=== PATIENT | male | born 1965 | race Caucasian/White ===

== ENCOUNTER 2017-12-11 13:38 | Inpatient (IN) | payer BC ==
[2017-12-11 20:54] LABS: Glucose,Whole Blood 134 mg/dL (75-99)
[2017-12-11] MEDS: INSULIN ASPART 100 UNIT/ML 1 ML 10 ML VIAL SQ SCH (21:57)
[2017-12-11] MEDS ORDERED: cloNIDine HCL 0.2 MG TAB PO SCH (22:00)
[2017-12-11] MEDS: cloNIDine HCL 0.2 MG TAB PO SCH (23:53)
[2017-12-11] MEDS: methylPREDNISolone SOD SUCCI 125 MG/2 ML VIAL IV SCH (23:53)
[2017-12-12] MEDS ORDERED: ALPRAZolam 0.25 MG TAB PO PRN (00:52)
[2017-12-12] MEDS ORDERED: TEMAZEPAM 15 MG CAP PO PRN (00:52)
--- NOTE | 2017-12-12 01:17 | XR ---
EXAMINATION TYPE: XR chest 1V portable DATE OF EXAM: 12/12/2017 COMPARISON: NONE HISTORY: Short of breath TECHNIQUE: Single frontal view of the chest is obtained. FINDINGS: Heart is enlarged. There is some infiltrate at the lung bases and more on the left side. T here is coarsening of interstitial markings. The pulmonary vascularity is difficult to evaluate becau se of the lung disease. There are chest leads. I see no pleural effusion. IMPRESSION: Cardiomegaly and bilateral lower lobe pulmonary infiltrates probably related to pneumoni a. Mild heart failure is possible. Possible pulmonary interstitial fibrosis.
[2017-12-12 06:03] LABS: Glucose,Whole Blood 125 mg/dL (75-99)
[2017-12-12 06:57] LABS: Albumin 4.1 g/dL (3.5-5.0); Calcium 9.9 mg/dL (8.4-10.2); Potassium 4.8 mmol/L (3.5-5.1); Total Bilirubin 0.9 mg/dL (0.2-1.3); Total Protein 7.5 g/dL (6.3-8.2)
[2017-12-12] MEDS: methylPREDNISolone SOD SUCCI 125 MG/2 ML VIAL IV SCH ×4 (06:57→23:20)
[2017-12-12] MEDS: INSULIN ASPART 100 UNIT/ML 1 ML 10 ML VIAL SQ SCH ×4 (06:57→20:37)
[2017-12-12] MEDS: PANTOPRAZOLE 40 MG TABLET PO SCH (06:58)
--- NOTE | 2017-12-12 08:00 | HP ---
HISTORY AND PHYSICAL CHIEF COMPLAINT: Shortness of breath. HISTORY OF PRESENT ILLNESS: This 52-year-old gentleman with a past history of no medical history except appendectomy, hernia repair is not following with any primary physician. The patient presented to [facility] with complaint of shortness of breath and subsequently transferred to Cardiology for further evaluation and treatment. The patient is feeling better after Lasix. Otherwise there is no history of fever or rigors. There is no history of headache, loss of consciousness. The patient is being evaluated for CHF at this time. PAST MEDICAL HISTORY: History of appendectomy, hernia repair. MEDICATIONS: None. ALLERGIES: None. FAMILY HISTORY: Atrial fibrillation, CABG in the family. SOCIAL HISTORY: History of smoking. No history of alcohol intake. REVIEW OF SYSTEMS: ENT: No diminished hearing, vision. CARDIOVASCULAR: As mentioned earlier. RESPIRATORY: As mentioned earlier. GI: No nausea. : No dysuria. NERVOUS SYSTEM: No numbness, weakness. ALLERGY/IMMUNOLOGY: No history of asthma. MUSCULOSKELETAL: As mentioned earlier. HEMATOLOGY/ONCOLOGY: No history of anemia. ENDOCRINE: No history of diabetes or hypothyroidism. CONSTITUTIONAL: As mentioned earlier. DERMATOLOGY: Negative. RHEUMATOLOGY: Negative. PSYCHIATRY: As mentioned earlier. PHYSICAL EXAM: Patient is alert, oriented x3. Pulse is 80, blood pressure 140/94, respirations 16, temp 97.7, pulse ox 96% on room air. HEENT: Conjunctivae normal. Oral mucosa moist. NECK: No jugular venous distention. No carotid bruit. No lymph node enlargement. CARDIOVASCULAR: S1, S2. No S3, no S4. RESPIRATORY: Breath sounds diminished in the bases. A few scattered rhonchi. No crackles. ABDOMEN: Soft, nontender. No mass palpable. LEGS: No edema, no swelling. NERVOUS SYSTEM: Higher functions as mentioned earlier, moves all 4 limbs, no focal motor deficits. LYMPHATICS: No lymphadenopathy in the neck, axillae, groin. SKIN: No ulcer, rash, bleeding. LABS: At this time shows glucose 130. ASSESSMENT: 1. Shortness of breath for evaluation, rule out congestive heart failure. 2. History of nicotine dependence. 3. Appendectomy. 4. History of hernia repair. 5. Family history of coronary artery disease. 6. Hypertension. RECOMMENDATIONS AND DISCUSSION: This 52-year-old gentleman who presented with multiple complex medical issues, will monitor the patient closely. Continue the current management and symptomatic treatment. Otherwise at this time I recommend smoking cessation. Monitor blood pressure closely. Otherwise I would also continue with bronchodilators, rule out the possibility of COPD and follow closely with Cardiology and Pulmonology. Further recommendations to follow. MMODL / IJN: [id number] /
[2017-12-12] MEDS: FUROSEMIDE 10 MG/ML 4 ML VIAL IV SCH ×2 (08:35→12:47)
[2017-12-12] MEDS: amLODIPine 5 MG TAB PO SCH (08:35)
[2017-12-12] MEDS: cloNIDine HCL 0.2 MG TAB PO SCH (08:35)
[2017-12-12] MEDS: HEPARIN SODIUM,PORCINE 5,000 UNIT/ML 1 ML VIAL SQ SCH ×2 (08:36→20:39)
[2017-12-12] MEDS: NICOTINE 14MG/24HR PATCH TRANSDERM SCH (08:36)
[2017-12-12] MEDS: BUDESONIDE 1 MG/2 ML NEBU INHALATION SCH ×2 (08:43→20:32)
[2017-12-12] MEDS: IPRATROPIUM-ALBUTEROL 3 ML NEB INHALATION PRN ×2 (08:43→20:32)
[2017-12-12 11:15] LABS: Hemoglobin A1C 5.8 % (4.0-6.0)
[2017-12-12 11:59] LABS: Glucose,Whole Blood 162 mg/dL (75-99)
[2017-12-12 12:30] VITALS: BMI 32.8
--- NOTE | 2017-12-12 12:39 | XR ---
EXAMINATION TYPE: XR chest 2V DATE OF EXAM: 12/12/2017 HISTORY: CHF. REFERENCE: Previous study dated 12/12/2017. FINDINGS: The lungs are overinflated. The heart is mildly enlarged. There is some focal consolidation in the left lower lobe. There is atelectasis or scarring in the right lung base. Pleural spaces appe ar clear. IMPRESSION: 1. COPD. 2. CARDIOMEGALY. 3. LEFT BASILAR AIRSPACE DISEASE.
[2017-12-12] MEDS: THIAMINE 100 MG TAB PO SCH (12:51)
[2017-12-12 13:34] LABS: Cholesterol 152 mg/dL (<200); HDL Cholesterol 36 mg/dL (40-60); LDL Cholesterol,Calculated 95 mg/dL (0-99); Triglycerides 105 mg/dL (<150)
--- NOTE | 2017-12-12 14:33 | PN ---
PROGRESS NOTE Mr. Cazares is a 52-year-old male with no prior documented coronary disease who has not seen a physician in a longtime who presented to the hospital with symptoms of progressive dyspnea and he was noted to be in congestive heart failure with uncontrolled hypertension. He had an echocardiogram that revealed a severe cardiomyopathy. The patient is feeling much better today. His breathing is stable. He denies any chest pain. He denies any dizziness or palpitation. He denies any nausea. On his echocardiogram, it was felt ejection fraction is 20-25%. The patient denies any knowledge of any abnormalities, but as noted has not seen a physician in the recent past. He continues to be at this time on amlodipine 5 mg daily, clonidine 0.2 mg q.8 hours. PHYSICAL EXAMINATION: Blood pressure 126/70 with a heart rate in the 70s. LUNGS: Clear. HEART: Regular rate and rhythm. S1, S2. No S3. No rub appreciated. ABDOMEN: Soft, nontender. EXTREMITIES: No edema. LAB DATA: BUN and creatinine of 41 and 1.6, which is similar to what he had at [facility]. IMPRESSION: 1. Severe cardiomyopathy of unclear etiology. 2. Hypertension. 3. Chronic tobacco use. 4. Renal failure of unknown duration. RECOMMENDATION: Will cut down the dose of his clonidine. I will add beta ken to his regimen. I will add aspirin once a day. We will follow his renal function. The patient would require coronary angiography to assess the status and depending on his renal function, further recommendation will be made. MMODL / IJN: [id number] /
--- NOTE | 2017-12-12 15:35 | P.CNPUL ---
History of Present Illness Consult date: 12/12/17 Reason for consult: dyspnea History of present illness: This is a 52-year-old male patient got transferred from [facility] for further evaluation and specifically the patient wanted some further cardiac evaluation including cardiac catheterization regarding possible coronary artery disease. The patient presented there with increased shortness of breath. The patient was having progressive dyspnea and orthopnea and increasing lower extremity edema. He is further having some increased cough and congestion. Chest x-ray was consistent with failure. The patient's troponins were negative. Echocardiogram shows impaired LV function with an ejection of 2025%. Based on that, the patient started on diuretics and he started improving. The plan was to proceed with a cardiac catheterization however the patient developed an acute kidney injury in the creatinine came up to 1.6. Currently the Lasix hold. Meanwhile the patient is improved significantly. The patient is receiving bronchodilators. The patient has a proBNP level of 2500. Sodium level is also elevated at 146. Chest x-ray was repeated here and it showed cardiomegaly and left basilar airspace disease and some COPD. The patient is a chronic smoker. This patient has smoked more than 35-40 pack years. No previous history of DVT or pulmonary embolism. No other previous history of asthma or cardiac disease. Review of Systems Constitutional: Reports as per HPI Eyes: denies blurred vision, denies bulging eye, denies decreased vision Ears: deny: decreased hearing, ear discharge, earache Ears, nose, mouth and throat: Denies headache, Denies sore throat Cardiovascular: Reports dyspnea on exertion, Reports edema, Reports shortness of breath Respiratory: Reports cough, Reports dyspnea Gastrointestinal: Denies abdominal pain, Denies diarrhea, Denies nausea, Denies vomiting Genitourinary: Reports as per HPI Musculoskeletal: Denies myalgias Musculoskeletal: absent: ankle pain, ankle stiffness, ankle swelling Integumentary: Denies pruritus, Denies rash Neurological: Denies numbness, Denies weakness Psychiatric: Denies anxiety, Denies depression Endocrine: Denies fatigue, Denies weight change Hematologic/Lymphatic: Reports as per HPI Past Medical History Additional Past Medical History / Comment(s): Congestion heart failure with impaired ejection fraction of 25%, COPD History of Any Multi-Drug Resistant Organisms: None Reported Past Surgical History: Appendectomy Additional Past Surgical History / Comment(s): hernia repair Past Anesthesia/Blood Transfusion Reactions: No Reported Reaction Past Psychological History: No Psychological Hx Reported Smoking Status: Current every day smoker (More than [id number] smoking history , no alcoholism, so substance abuse and 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) Past Alcohol Use History: None Reported Past Drug Use History: None Reported - Past Family History Mother Family Medical History: AFIB Father Family Medical History: Coronary Artery Disease (CAD) Additional Family Medical History / Comment(s): CABG Medications and Allergies Home Medications Medication Instructions Recorded Confirmed Type No Known Home Medications [No 12/11/17 12/11/17 History Known Home Medications] Allergies Allergy/AdvReac Type Severity Reaction Status Date / Time No Known Allergies Allergy Verified 12/11/17 20:44 Physical Exam Vitals: Vital Signs Temp Pulse Pulse Resp BP Pulse Ox 12/12/17 11:14 96.8 F L 70 18 126/77 96 12/12/17 09:05 76 12/12/17 08:44 72 12/12/17 08:00 96.9 F L 76 18 149/88 94 L 12/12/17 04:00 97.3 F L 72 16 112/75 94 L 12/12/17 00:00 97.0 F L 70 16 139/87 95 12/11/17 20:30 97.7 F 80 16 148/94 96 12/11/17 19:40 97.7 F 80 16 148/94 96 Intake and Output 12/12/17 12/12/17 12/12/17 06:59 14:59 22:59 Intake Total 240 Output Total 400 500 Balance -400 -260 Intake: Oral 240 Output: Urine 400 500 Other: Voiding Method Urinal Weight 116 kg 116 kg The patient appeared well nourished and normally developed. Vital signs as documented. Head exam is unremarkable. No scleral icterus or corneal arcus noted. Neck is without jugular venous distension, thyromegaly, or carotid bruits. Carotid upstrokes are brisk bilaterally. Lungs are diminished breath sound bilaterally along with some few scattered external wheezes heard throughout the lung sargent.. Cardiac exam reveals the PMI to be normally sized and situated. Rhythm is regular. First and second heart sounds normal. No murmurs, rubs or gallops. Abdominal exam reveals normal bowel sounds, no masses , no organomegaly and no aortic enlargement. Extremities are nonedematous and both femoral and pedal pulses are normal.Examination of the skin revealed no evidence of significant rashes, suspicious appearing nevi or other concerning lesions. Neurologically the patient is awake and alert and there is no focal neurological deficits. Results - Laboratory Findings CBC and BMP: 12/12/17 06:22 Abnormal lab findings: Abnormal Labs 12/11/17 12/12/17 12/12/17 20:53 06:01 06:22 Sodium 146 H BUN 41 H Creatinine 1.60 H Glucose 133 H POC Glucose (mg/dL) 134 H 125 H HDL Cholesterol 12/12/17 12/12/17 06:22 11:27 Sodium BUN Creatinine Glucose POC Glucose (mg/dL) 162 H HDL Cholesterol 36 L - Diagnostic Findings Chest x-ray: image reviewed Assessment and Plan Plan: Assessment 1 acute shortness of breath, related to a combination of COPD/CHF exacerbation, improving 2 COPD 3 congestion heart failure with an ejection fraction of 25% 4 increased lower extremity edema secondary to CHF, improved 5 acute kidney injury secondary to diuresis and the patient is currently off diuretics 6 hypertension 7 smoker Plan Hold diuretics. Monitor renal function. Cardiac catheterization once the patient's renal function stabilizes. Continue the DuoNeb nebulized treatments around the clock. Continue IV 7 Medrol for another 24 hours and start the patient prednisone burst taper as of tomorrow. Chest x-rays consistent with COPD and outpatient employee relations assistant function tests will be done to assess the presence and the severity of his underlying COPD. We'll continue to follow.
[2017-12-12] MEDS: ATORVASTATIN 40 MG TAB PO SCH (17:04)
[2017-12-12] MEDS: cloNIDine HCL 0.1 MG TAB PO SCH ×2 (17:04→23:19)
[2017-12-12] MEDS: ASPIRIN 81 MG PO SCH (17:04)
--- NOTE | 2017-12-12 17:20 | ECHOF ---
Referral Reason:chf MEASUREMENTS -------- HEIGHT: 182.9 cm WEIGHT: 118.8 kg BP: RVIDd: 4.2 cm (< 3.3) IVSd: 1.5 cm (0.6 - 1.1) LVIDd: 5.7 cm (3.9 - 5.3) LVPWd: 1.6 cm (0.6 - 1.1) IVSs: 1.7 cm LVIDs: 4.1 cm LVPWs: 1.8 cm LA Diam: 4.6 cm (2.7 - 3.8) Ao Diam: 3.2 cm (2.0 - 3.7) AV Cusp: 1.6 cm (1.5 - 2.6) LA Diam: 4.9 cm (2.7 - 3.8) MV EXCURSION: 16.139 mm (> 18.000) MV EF SLOPE: 50 mm/s (70 - 150) EPSS: 2.0 cm MV E Rocael: 0.93 m/s MV DecT: 147 ms MV A Rocael: 0.26 m/s MV E/A Ratio: 3.53 RAP: 5.00 mmHg RVSP: 43.59 mmHg FINDINGS -------- Sinus rhythm. This was a techncally difficult study with suboptimal views, , Lumason utilized for enhancement of im ages. The left ventricular size is normal. There is moderate concentric left ventricular hypertrophy. T here is severe global hypokinesis of LV . Overall left ventricular systolic function is moderate-se verely impaired with, an EF between 30 - 35 %. The right ventricle is normal in size. The left atrium is mildly dilated. The right atrial size is normal. 5.0mg OF Lumason UTLIZED: 2 OR MORE WALL SEGMENTS NOT VISUALIZED. The aortic valve is trileaflet, and appears structurally normal. No aortic stenosis or regurgitation. The mitral valve is normal. Mild mitral regurgitation is present. Mild tricuspid regurgitation present. There is mild pulmonary hypertension. The right ventricular systolic pressure, as measured by Doppler, is 43.59mmHg. There is no pulmonic regurgitation present. The aortic root size is normal. There is a trivial pericardial effusion present. CONCLUSIONS -------- 1. This was a techncally difficult study with suboptimal views, , Lumason utilized for enhancement of images. 2. The left ventricular size is normal. 3. There is moderate concentric left ventricular hypertrophy. 4. There is severe global hypokinesis of LV . 5. Overall left ventricular systolic function is moderate-severely impaired with, an EF between 30 - 35 %. 6. The left atrium is mildly dilated. 7. 5.0mg OF Lumason UTLIZED: 2 OR MORE WALL SEGMENTS NOT VISUALIZED. 8. The aortic valve is trileaflet, and appears structurally normal. No aortic stenosis or regurgitati on. 9. Mild mitral regurgitation is present. 10. Mild tricuspid regurgitation present. 11. There is mild pulmonary hypertension. 12. There is no pulmonic regurgitation present. 13. The aortic root size is normal. 14. There is a trivial pericardial effusion present. PUBLIC HEALTH ASSISTANT: Sailaja Crawford RDCS
[2017-12-12 17:21] LABS: Glucose,Whole Blood 104 mg/dL (75-99)
[2017-12-12] MEDS: CARVEDILOL 6.25 MG TAB PO SCH (18:10)
--- NOTE | 2017-12-12 18:45 | PN ---
PROGRESS NOTE DATE OF SERVICE: 12/12/2017 This 52-year-old gentleman who was admitted with shortness of breath, possibly had CHF acute exacerbation with acute on chronic systolic dysfunction and possibly cardiomyopathy of undetermined etiology. Ejection fraction found to be around 20 to 25%. The patient is also evaluated by Pulmonology to rule out the possibility of chronic obstructive pulmonary disease. Otherwise the patient also had a renal failure, possibly chronic kidney disease and I would also recommend nephrology evaluation also prior to possible cardiac cath. Otherwise the patient is being closely monitored at this time. PAST MEDICAL HISTORY: Reviewed. REVIEW OF SYSTEMS: CARDIOVASCULAR: No angina. RESPIRATORY: As mentioned earlier. GI: As Mentioned. : No dysuria or retention. NERVOUS SYSTEM: As mentioned earlier. CURRENT MEDICATIONS: 1. DuoNeb q.i.d. and p.r.n. 2. Xanax 0.5 t.i.d. 3. Norvasc 5 mg b.i.d. 4. Aspirin 81 mg. 5. Lipitor 40 mg. 6. Pulmicort b.i.d. 7. Coreg 6.25 mg b.i.d. 8. Heparin. 9. Solu-Medrol 60 IV q.6h. 10.Habitrol 14. 11.Restoril. 12.Thiamine 100 mg p.o. daily. PHYSICAL EXAM: Patient is alert, oriented x3. Pulse 70, blood pressure 126/77, respiration 18, temperature 96.8, pulse ox 98% on room air. HEENT: Conjunctivae normal. NECK: No jugular venous distention. CARDIOVASCULAR: S1, S2 muffled. RESPIRATORY: Breath sounds diminished in the bases. Scattered rhonchi. No crackles. ABDOMEN: Soft, nontender. No mass palpable. No hepatosplenomegaly. LEGS: No edema, no swelling. NERVOUS SYSTEM: Higher functions as mentioned earlier, moves all 4 limbs, no focal motor deficit. LYMPHATICS: No lymphadenopathy in the neck, axillae, groin. SKIN: No ulcer, rashes, bleeding. LABS: The sodium is 140, creatinine is 1.6. ASSESSMENT: 1. Shortness of breath possible congestive heart failure acute exacerbation with acute on chronic systolic dysfunction, ejection fraction 25-30%. 2. Possible cardiomyopathy of undetermined etiology. 3. Rule out chronic obstructive pulmonary disease. 4. History of nicotine dependence. 5. Appendectomy. 6. History of hernia repair. 7. Family history of coronary artery disease. 8. Hypertension. 9. Mild hyponatremia. 10.Increased random blood sugar. RECOMMENDATIONS AND DISCUSSION: I recommend to continue current management, continue monitoring and symptomatic treatment. Continue diuretics. Continue with bronchodilators. Steroids initiated. Monitor blood sugars closely. Closely follow with Cardiology and Pulmonology. I would also recommend nephrology evaluation, possible cardiac cath. Prognosis guarded. Discussed with the patient who understands. Further recommendations to follow. I also recommend the patient follow up with primary physician in the outpatient setting also. The patient understands and agrees. MMODL / IJN: [id number] /
[2017-12-12 20:32] LABS: Glucose,Whole Blood 128 mg/dL (75-99)
[2017-12-13 05:54] LABS: Glucose,Whole Blood 128 mg/dL (75-99)
[2017-12-13] MEDS: INSULIN ASPART 100 UNIT/ML 1 ML 10 ML VIAL SQ SCH ×4 (06:20→21:54)
[2017-12-13] MEDS: methylPREDNISolone SOD SUCCI 125 MG/2 ML VIAL IV SCH ×4 (06:32→23:52)
[2017-12-13] MEDS: CARVEDILOL 6.25 MG TAB PO SCH ×2 (06:34→17:25)
[2017-12-13] MEDS: PANTOPRAZOLE 40 MG TABLET PO SCH (06:34)
[2017-12-13 06:48] LABS: Basophils % (A) 0 %; Eosinophils % (A) 0 %; HCT 49.2 % (39.0-53.0); HGB 15.2 gm/dL (13.0-17.5); Hypochromasia Moderate; Lymphocytes # (A) 0.9 k/uL (1.0-4.8); Lymphocytes % (A) 6 %; MCH 24.2 pg (25.0-35.0); MCHC 30.9 g/dL (31.0-37.0); MCV 78.2 fL (80.0-100.0); Mean Platelet Volume 8.6; Monocytes # (A) 0.4 k/uL (0-1.0); Monocytes % (A) 3 %; Neutrophils # (A) 13.6 k/uL (1.3-7.7); Neutrophils % (A) 90 %; Platelet Count 257 k/uL (150-450); RBC 6.29 m/uL (4.30-5.90); RDW 15.3 % (11.5-15.5); WBC 15.1 k/uL (3.8-10.6)
[2017-12-13 07:31] LABS: Calcium 9.9 mg/dL (8.4-10.2); Potassium 4.7 mmol/L (3.5-5.1)
[2017-12-13] MEDS: IPRATROPIUM-ALBUTEROL 3 ML NEB INHALATION PRN ×2 (08:12→20:59)
[2017-12-13] MEDS: BUDESONIDE 1 MG/2 ML NEBU INHALATION SCH ×2 (08:12→20:59)
[2017-12-13] MEDS: NICOTINE 14MG/24HR PATCH TRANSDERM SCH (08:25)
[2017-12-13] MEDS: ATORVASTATIN 40 MG TAB PO SCH (08:25)
[2017-12-13] MEDS: HEPARIN SODIUM,PORCINE 5,000 UNIT/ML 1 ML VIAL SQ SCH ×2 (08:25→21:53)
[2017-12-13] MEDS: cloNIDine HCL 0.1 MG TAB PO SCH ×2 (08:25→21:53)
[2017-12-13] MEDS: ASPIRIN 81 MG PO SCH (08:25)
[2017-12-13] MEDS: amLODIPine 5 MG TAB PO SCH (08:25)
--- NOTE | 2017-12-13 08:44 | P.NPCON ---
History of Present Illness - Reason for Consult acute renal failure - History of Present Illness Reason for consultation: Acute kidney injury History of present illness: Patient is a 52-year-old male seen in renal consultation for acute kidney injury. Unclear as to what his baseline function is. Patient presented to [facility] with dyspnea. He was complaining of edema in his legs and received IV diuretics. Edema has resolved. He was subsequently transferred to [facility] for possible angiography. His creatinine was 1.6 on admission and is down to 1.34 today. He denies any active chest pain or shortness of breath. Denies use of NSAIDs. Denies prior history of kidney disease. States he hasn't seen a physician for several years. Echocardiogram revealed ejection fraction of 30-35%. Admits to good urine output. Hematuria or dysuria. Oral intake is good. His last dose of Lasix was on December 19. He admits to good urine output. Denies any hematuria or dysuria. Denies fever or chills. No active complaints at this time. Vital signs are stable. General: The patient appeared well nourished and normally developed. HEENT: Head exam is unremarkable. Neck is without jugular venous distension. LUNGS: Lungs are clear to auscultation and percussion. Breath sounds decreased. HEART: Rate and Rhythm are regular. First and second heart sounds normal. No murmurs, rubs or gallops. ABDOMEN: Abdominal exam reveals normal bowel sounds. Non-tender and non- distended. No evidence of peritonitis. EXTREMITITES: No clubbing, cyanosis, or edema. 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) Past Alcohol Use History: None Reported Past Drug Use History: None Reported - Past Family History Mother Family Medical History: AFIB Father Family Medical History: Coronary Artery Disease (CAD) Additional Family Medical History / Comment(s): CABG Medications and Allergies Home Medications Medication Instructions Recorded Confirmed Type No Known Home Medications [No 12/11/17 12/11/17 History Known Home Medications] Allergies Allergy/AdvReac Type Severity Reaction Status Date / Time No Known Allergies Allergy Verified 12/11/17 20:44 Physical Exam Vitals: Vital Signs Temp Pulse Pulse Resp BP Pulse Ox 12/13/17 08:28 70 12/13/17 08:14 64 12/13/17 03:40 97.0 F L 74 18 112/76 93 L 12/12/17 23:20 97.2 F L 70 18 129/87 94 L 12/12/17 20:47 80 12/12/17 20:33 83 12/12/17 19:50 96.9 F L 74 18 131/86 94 L 12/12/17 16:00 97.1 F L 73 18 135/90 96 12/12/17 11:14 96.8 F L 70 18 126/77 96 12/12/17 09:05 76 12/12/17 08:44 72 Intake and Output 12/12/17 12/13/17 12/13/17 22:59 06:59 14:59 Intake Total 480 Output Total 600 500 Balance -120 -500 Intake: Oral 480 Output: Urine 600 500 Other: Voiding Method Urinal Urinal # Voids 500 Weight 116.3 kg Results - Lab Results Most recent lab results Calcium 9.9 mg/dL (8.4-10.2) 12/13/17 06:14 12/13/17 06:14 12/13/17 06:14 Assessment and Plan Plan: Assessment: #1. Nonoliguric acute kidney injury mostly prerenal secondary to cardiorenal syndrome. Creatinine was 1.6 on admission and is 1.34 today. Unclear as to what his baseline renal function is. #2. Mild hypernatremia from free water losses from diuresis. #3. Metabolic acidosis secondary to acute kidney injury. #4. Systolic CHF with ejection fraction of 30%. Currently compensated. #5. Volume overload. Resolved. Plan: Continue to hold diuretics for now. Add oral sodium bicarbonate 650 mg twice daily. Low-salt diet. I discussed with him the risk of worsening renal failure with exposure to IV dye. Patient understands. He is willing to proceed with angiography. I would hold off on IV hydration due to his underlying cardiac status and recent fluid overload. Thank you for the consultation. I will continue to follow the patient with you during his hospital stay.
[2017-12-13] MEDS: SODIUM BICARBONATE TAB 650 MG TAB PO SCH ×2 (10:34→21:54)
--- NOTE | 2017-12-13 11:52 | PN ---
PROGRESS NOTE Mr. Cazares is a 52-year-old male who presented with symptoms of progressive dyspnea, was found to have severe cardiomyopathy and severe hypertension. He is feeling much better today. His breathing is stable. He denies any chest pain. He denies any dizziness or palpitation. He is ambulating, feeling stronger. He continues to be at this time on Catapres 0.1 mg 3 times a day, Lipitor 4 mg daily, aspirin once a day, amlodipine 5 mg daily, Coreg 6.5 mg twice a day. Methylprednisone and nicotine patch. PHYSICAL EXAMINATION: Blood pressure 135/80 with a heart rate in 70s. LUNGS: Clear. Heart regular rate and rhythm S1, S2. No S3. No rub. ABDOMEN: Soft, nontender. EXTREMITIES: No edema. LAB DATA: Lab data revealed a BUN and creatinine of 42 and 1.34, potassium 4.7, hemoglobin 15.2. IMPRESSION: 1. Severe cardiomyopathy of unclear etiology. 2. Hypertension. 3. Renal failure, improving. 4. Chronic tobacco use. RECOMMENDATION: I will stop the amlodipine and decrease the clonidine. I will add hydralazine and isosorbide mononitrate to his regimen. The patient will require coronary angiography. Depending on his renal function he may be a candidate to do that sometime in mid next week and I have discussed those findings with the patient and he is in full understanding and agreement. MMODL / IJN: [id number] /
[2017-12-13 11:59] LABS: Glucose,Whole Blood 122 mg/dL (75-99)
[2017-12-13] MEDS: hydrALAZINE HCL 25 MG TAB PO SCH ×2 (12:33→23:52)
[2017-12-13] MEDS: ISOSORBIDE MONONITRATE ER 30 MG TAB.ER.24H PO SCH (12:33)
[2017-12-13] MEDS: THIAMINE 100 MG TAB PO SCH (12:33)
[2017-12-13 12:38] LABS: Albumin 3.9 g/dL (3.5-5.0); Total Bilirubin 0.9 mg/dL (0.2-1.3); Total Protein 7.3 g/dL (6.3-8.2)
--- NOTE | 2017-12-13 12:40 | P.PN ---
Subjective Progress Note Date: 12/13/17 This is a 52-year-old male patient got transferred from [facility] for further evaluation and specifically the patient wanted some further cardiac evaluation including cardiac catheterization regarding possible coronary artery disease. The patient presented there with increased shortness of breath. The patient was having progressive dyspnea and orthopnea and increasing lower extremity edema. He is further having some increased cough and congestion. Chest x-ray was consistent with failure. The patient's troponins were negative. Echocardiogram shows impaired LV function with an ejection of 2025%. Based on that, the patient started on diuretics and he started improving. The plan was to proceed with a cardiac catheterization however the patient developed an acute kidney injury in the creatinine came up to 1.6. Currently the Lasix hold. Meanwhile the patient is improved significantly. The patient is receiving bronchodilators. The patient has a proBNP level of 2500. Sodium level is also elevated at 146. Chest x-ray was repeated here and it showed cardiomegaly and left basilar airspace disease and some COPD. The patient is a chronic smoker. This patient has smoked more than 35-40 pack years. No previous history of DVT or pulmonary embolism. No other previous history of asthma or cardiac disease. On 12/11/2017, the patient is doing well. His shortness of breath improved considerably. Noted the patient came into the hospital because of an acute COPD /CHF exacerbation. COPD exacerbation was treated with a combination of DuoNeb and IV Solu-Medrol. As for the CHF, the patient was found to have significant cardiomyopathy and as part of further workup the patient will need a cardiac catheterization. Nevertheless, the cath was placed on hold knowing that the patient developed some prerenal azotemia secondary to aggressive diuresis. The diuretics have to patient's volume status and he is less short of breath. Nevertheless, he has developed a acute kidney injury and the currently the Lasix is on hold. The renal function is improving. A cardiac catheter patient will be done once the renal function normalizes. We are avoiding nephrotoxic agents for now. His blood pressure is under well control. No other significant events over the past 24 hours. His emanating. He is utilizing a nicotine patch. Objective - Vital Signs Vital signs: Vital Signs Temp 97.2 F L 12/13/17 11:29 Pulse 77 12/13/17 11:29 Resp 18 12/13/17 11:29 BP 135/85 12/13/17 11:29 Pulse Ox 95 12/13/17 11:29 Intake & Output 12/12/17 12/13/17 12/13/17 18:59 06:59 18:59 Intake Total 1200 Output Total 1100 500 Balance 100 -500 Weight 116 kg 116.3 kg Intake: Oral 1200 Output: Urine 1100 500 Other: Voiding Method Urinal Urinal # Voids 500 - Exam The patient appeared well nourished and normally developed. Vital signs as documented. Head exam is unremarkable. No scleral icterus or corneal arcus noted. Neck is without jugular venous distension, thyromegaly, or carotid bruits. Carotid upstrokes are brisk bilaterally. Lungs are diminished breath sound bilaterally along with some few scattered external wheezes heard throughout the lung sargent.. Cardiac exam reveals the PMI to be normally sized and situated. Rhythm is regular. First and second heart sounds normal. No murmurs, rubs or gallops. Abdominal exam reveals normal bowel sounds, no masses , no organomegaly and no aortic enlargement. Extremities are nonedematous and both femoral and pedal pulses are normal.Examination of the skin revealed no evidence of significant rashes, suspicious appearing nevi or other concerning lesions. Neurologically the patient is awake and alert and there is no focal neurological deficits. - Labs CBC & Chem 7: 12/13/17 06:14 12/13/17 06:14 Labs: Abnormal Lab Results - Last 24 Hours (Table) 12/12/17 12/12/17 12/12/17 Range/Units 06:22 16:53 20:29 WBC (3.8-10.6) k/uL RBC (4.30-5.90) m/uL MCV (80.0-100.0) fL MCH (25.0-35.0) pg MCHC (31.0-37.0) g/dL Neutrophils # (1.3-7.7) k/uL Lymphocytes # (1.0-4.8) k/uL Carbon Dioxide (22-30) mmol/L BUN (9-20) mg/dL Creatinine (0.66-1.25) mg/dL Glucose (74-99) mg/dL POC Glucose (mg/dL) 104 H 128 H (75-99) mg/dL HDL Cholesterol 36 L (40-60) mg/dL 12/13/17 12/13/17 12/13/17 Range/Units 05:50 06:14 06:14 WBC 15.1 H (3.8-10.6) k/uL RBC 6.29 H (4.30-5.90) m/uL MCV 78.2 L (80.0-100.0) fL MCH 24.2 L (25.0-35.0) pg MCHC 30.9 L (31.0-37.0) g/dL Neutrophils # 13.6 H (1.3-7.7) k/uL Lymphocytes # 0.9 L (1.0-4.8) k/uL Carbon Dioxide 20 L (22-30) mmol/L BUN 42 H (9-20) mg/dL Creatinine 1.34 H (0.66-1.25) mg/dL Glucose 126 H (74-99) mg/dL POC Glucose (mg/dL) 128 H (75-99) mg/dL HDL Cholesterol (40-60) mg/dL 12/13/17 Range/Units 11:37 WBC (3.8-10.6) k/uL RBC (4.30-5.90) m/uL MCV (80.0-100.0) fL MCH (25.0-35.0) pg MCHC (31.0-37.0) g/dL Neutrophils # (1.3-7.7) k/uL Lymphocytes # (1.0-4.8) k/uL Carbon Dioxide (22-30) mmol/L BUN (9-20) mg/dL Creatinine (0.66-1.25) mg/dL Glucose (74-99) mg/dL POC Glucose (mg/dL) 122 H (75-99) mg/dL HDL Cholesterol (40-60) mg/dL Assessment and Plan Plan: Assessment 1 acute shortness of breath, related to a combination of COPD/CHF exacerbation, improving 2 COPD exacerbation, improving and the patient remains on DuoNeb and IV Solu- Medrol 3 congestion heart failure with an ejection fraction of 25%, currently off diuretics as the patient developed an acute kidney injury/prerenal azotemia. 4 increased lower extremity edema secondary to CHF, improved 5 acute kidney injury secondary to diuresis and the patient is currently off diuretics, and the renal function is improving and it creatinine is down to 1.3. The patient has a component of non-anion gap metabolic acidosis and the patient was started on oral bicarbonate. 6 hypertension 7 smoker Plan Keep the diuretics on hold. Add oral bicarb. Monitor renal function. Cardiac catheterization/angiogram once renal function stabilizes further. Continue breathing treatments. Continue steroids. Hydralazine was added in conjunction with nitrates regarding his cardiomyopathy and Norvasc was discontinued by cardiology. The patient is also on vomiting for blood pressure control. The patient is also on Coreg 6.25 mg by mouth twice a day. Clinically the patient is doing well. He is ambulating. Keep the nicotine patch. Tapered to prednisone burst taper as of tomorrow. We'll continue to follow.
[2017-12-13 16:41] LABS: Glucose,Whole Blood 109 mg/dL (75-99)
--- NOTE | 2017-12-13 18:49 | PN ---
PROGRESS NOTE DATE OF SERVICE: 12/13/2017 This 52 -year-old gentleman admitted with shortness of breath with possible congestive heart failure acute exacerbation is being closely monitored at this time. The patient had possibly cardiomyopathy. Cardiac catheterization has been scheduled by cardiology. No chest pain. No palpitations. No fever. EXAM: Alert and oriented times three. Pulse 77. Blood pressure 130/85. Respiration 18, temperature 97.2, pulse ox 94% on room air. HEENT is conjunctivae normal. Neck is no jugular venous distention. Cardiovascular: S1, S2 muffled. Respiratory: Breath sounds diminished in the bases. A few scattered rhonchi and crackles. Abdomen is soft, nontender. Legs are no edema. Central nervous system: No focal deficits. LABORATORY DATA: WBC 15.1, hemoglobin 16.2, sodium 140, potassium 4.7, creatinine is 1.34. ASSESSMENT: 1. Shortness of breath with possible congestive heart failure acute exacerbation with acute on chronic systolic dysfunction, ejection fraction 25 to 30%. 2. Possible cardiomyopathy of undetermined etiology. 3. Rule out chronic obstructive pulmonary disease. 4. History of nicotine dependence. 5. Appendectomy. 6. History of hernia repair. 7. Family history of coronary artery disease. 8. Hypertension. 9. Chronic kidney disease stage 3. RECOMMENDATIONS AND DISCUSSION: Recommend to continue current medications, management and symptomatic treatment. Otherwise continue with diuretics. Continue to monitor closely and follow closely with Nephrology and Cardiology. Further recommendations to follow. MMODL / IJN: [id number] /
[2017-12-13 18:55] LABS: Amorphous Sediment,Urine Occasional /hpf; Appearance,Urine Cloudy (Clear); Bilirubin,Urine Negative (Negative); Blood,Urine Trace (Negative); Color,Urine Yellow; Glucose,Urine (UA) Negative (Negative); Hyaline Casts,Urine 1 /lpf (0-2); Ketones,Urine Negative (Negative); Leukocyte Esterase,Urine Negative (Negative); Mucus,Urine Rare /hpf; Nitrite,Urine Negative (Negative); Protein,Urine Trace (Negative); RBC,Urine 11 /hpf (0-5); Specific Gravity,Urine 1.021 (1.001-1.035); Uric Acid Crystals,Urine Occasional /hpf; Urobilinogen,Urine <2.0 mg/dL (<2.0); WBC,Urine 2 /hpf (0-5)
[2017-12-13 21:01] LABS: Glucose,Whole Blood 190 mg/dL (75-99)
[2017-12-14 05:56] LABS: Glucose,Whole Blood 113 mg/dL (75-99)
[2017-12-14] MEDS: INSULIN ASPART 100 UNIT/ML 1 ML 10 ML VIAL SQ SCH ×4 (05:56→21:43)
[2017-12-14] MEDS: PANTOPRAZOLE 40 MG TABLET PO SCH (06:00)
[2017-12-14] MEDS: CARVEDILOL 6.25 MG TAB PO SCH ×2 (06:00→17:30)
[2017-12-14] MEDS: methylPREDNISolone SOD SUCCI 125 MG/2 ML VIAL IV SCH ×3 (06:00→17:30)
[2017-12-14] MEDS: NICOTINE 14MG/24HR PATCH TRANSDERM SCH (06:00)
[2017-12-14 06:02] LABS: Basophils % (A) 0 %; Eosinophils % (A) 0 %; HCT 49.1 % (39.0-53.0); HGB 15.4 gm/dL (13.0-17.5); Hypochromasia Slight; Lymphocytes # (A) 0.9 k/uL (1.0-4.8); Lymphocytes % (A) 7 %; MCH 24.6 pg (25.0-35.0); MCHC 31.3 g/dL (31.0-37.0); MCV 78.5 fL (80.0-100.0); Mean Platelet Volume 8.3; Monocytes # (A) 0.5 k/uL (0-1.0); Monocytes % (A) 4 %; Neutrophils # (A) 11.7 k/uL (1.3-7.7); Neutrophils % (A) 88 %; Platelet Count 224 k/uL (150-450); RBC 6.26 m/uL (4.30-5.90); RDW 14.7 % (11.5-15.5); WBC 13.3 k/uL (3.8-10.6)
[2017-12-14 06:07] LABS: Calcium 9.9 mg/dL (8.4-10.2); Potassium 4.6 mmol/L (3.5-5.1)
--- NOTE | 2017-12-14 09:13 | P.PN ---
Subjective Patient is seen in follow-up for acute kidney injury. Unclear as to what his baseline renal function is. Creatinine is little worse today at 1.5. Oral intake is good. No edema. Denies chest pain or shortness of breath. Admits to good urine output. He is noted to have ejection fraction of 30-35%. Vital signs are stable. General: The patient appeared well nourished and normally developed. HEENT: Head exam is unremarkable. Neck is without jugular venous distension. LUNGS: Lungs are clear to auscultation and percussion. Breath sounds decreased. HEART: Rate and Rhythm are regular. First and second heart sounds normal. No murmurs, rubs or gallops. ABDOMEN: Abdominal exam reveals normal bowel sounds. Non-tender and non- distended. No evidence of peritonitis. EXTREMITITES: No clubbing, cyanosis, or edema. Objective - Vital Signs Vital signs: Vital Signs Temp 96.8 F L 12/14/17 08:00 Pulse 69 12/14/17 08:00 Resp 18 12/14/17 08:00 BP 138/91 12/14/17 08:00 Pulse Ox 97 12/14/17 08:00 Intake & Output 12/13/17 12/14/17 12/14/17 18:59 06:59 18:59 Intake Total 530 240 Output Total 1000 Balance -1000 530 240 Weight 117.1 kg Intake: Oral 530 240 Output: Urine 1000 Other: Voiding Method Urinal # Voids 3 - Labs CBC & Chem 7: 12/14/17 05:38 12/14/17 05:38 Labs: Abnormal Lab Results - Last 24 Hours (Table) 12/13/17 12/13/17 12/13/17 Range/Units 06:14 11:37 16:33 WBC (3.8-10.6) k/uL RBC (4.30-5.90) m/uL MCV (80.0-100.0) fL MCH (25.0-35.0) pg Neutrophils # (1.3-7.7) k/uL Lymphocytes # (1.0-4.8) k/uL Carbon Dioxide 20 L (22-30) mmol/L BUN 42 H (9-20) mg/dL Creatinine 1.34 H (0.66-1.25) mg/dL Glucose 126 H (74-99) mg/dL POC Glucose (mg/dL) 122 H 109 H (75-99) mg/dL Urine Protein (Negative) Urine Blood (Negative) Urine RBC (0-5) /hpf Uric Acid Crystals (None) /hpf Amorphous Sediment (None) /hpf Urine Mucus (None) /hpf 12/13/17 12/13/17 12/14/17 Range/Units 18:25 21:00 05:38 WBC 13.3 H (3.8-10.6) k/uL RBC 6.26 H (4.30-5.90) m/uL MCV 78.5 L (80.0-100.0) fL MCH 24.6 L (25.0-35.0) pg Neutrophils # 11.7 H (1.3-7.7) k/uL Lymphocytes # 0.9 L (1.0-4.8) k/uL Carbon Dioxide (22-30) mmol/L BUN (9-20) mg/dL Creatinine (0.66-1.25) mg/dL Glucose (74-99) mg/dL POC Glucose (mg/dL) 190 H (75-99) mg/dL Urine Protein Trace H (Negative) Urine Blood Trace H (Negative) Urine RBC 11 H (0-5) /hpf Uric Acid Crystals Occasional H (None) /hpf Amorphous Sediment Occasional H (None) /hpf Urine Mucus Rare H (None) /hpf 12/14/17 12/14/17 Range/Units 05:38 05:55 WBC (3.8-10.6) k/uL RBC (4.30-5.90) m/uL MCV (80.0-100.0) fL MCH (25.0-35.0) pg Neutrophils # (1.3-7.7) k/uL Lymphocytes # (1.0-4.8) k/uL Carbon Dioxide (22-30) mmol/L BUN 45 H (9-20) mg/dL Creatinine 1.50 H (0.66-1.25) mg/dL Glucose 122 H (74-99) mg/dL POC Glucose (mg/dL) 113 H (75-99) mg/dL Urine Protein (Negative) Urine Blood (Negative) Urine RBC (0-5) /hpf Uric Acid Crystals (None) /hpf Amorphous Sediment (None) /hpf Urine Mucus (None) /hpf Assessment and Plan Plan: Assessment: #1. Nonoliguric acute kidney injury mostly prerenal secondary to cardiorenal syndrome. Creatinine was 1.6 on admission and did come down to 1.34 - 1.5 today. Unclear as to what his baseline renal function is. #2. Mild hypernatremia from free water losses from diuretics. #3. Metabolic acidosis secondary to acute kidney injury. Improved. #4. Systolic CHF with ejection fraction of 30%. Currently compensated. #5. Volume overload. Resolved. #6. COPD exacerbation maintained on steroids and bronchodilator therapy. Pulmonology following. #7. Benign hypertension. Controlled. Plan: Continue to hold diuretics for now. Maintain oral sodium bicarbonate 650 mg twice daily. Low-salt diet. I discussed with him the risk of worsening renal failure with exposure to IV dye. Patient understands. He is willing to proceed with angiography. I would hold off on IV hydration due to his underlying cardiac status and recent fluid overload.
[2017-12-14] MEDS: cloNIDine HCL 0.1 MG TAB PO SCH (09:38)
[2017-12-14] MEDS: SODIUM BICARBONATE TAB 650 MG TAB PO SCH ×2 (09:38→21:39)
[2017-12-14] MEDS: HEPARIN SODIUM,PORCINE 5,000 UNIT/ML 1 ML VIAL SQ SCH ×2 (09:39→21:39)
[2017-12-14] MEDS: ISOSORBIDE MONONITRATE ER 30 MG TAB.ER.24H PO SCH (09:39)
[2017-12-14] MEDS: hydrALAZINE HCL 25 MG TAB PO SCH ×3 (09:39→21:39)
[2017-12-14] MEDS: ATORVASTATIN 40 MG TAB PO SCH (09:39)
[2017-12-14] MEDS: ASPIRIN 81 MG PO SCH (09:39)
[2017-12-14] MEDS: BUDESONIDE 1 MG/2 ML NEBU INHALATION SCH ×2 (10:01→20:32)
[2017-12-14] MEDS ORDERED: ATORVASTATIN 80 MG TAB PO STA (11:06)
[2017-12-14] MEDS ORDERED: ALPRAZolam 0.5 MG TAB PO PRN (11:06)
[2017-12-14] MEDS ORDERED: NITROGLYCERIN SL TABS 0.4 MG TAB SUBLINGUAL PRN (11:06)
[2017-12-14] MEDS ORDERED: ASPIRIN 325 MG TAB PO STA (11:06)
[2017-12-14] MEDS ORDERED: SODIUM CHLORIDE 0.9% 1,000 ML in EMPTY BAG 1 BAG IV ONE (11:06)
[2017-12-14] MEDS ORDERED: ALPRAZolam 0.25 MG TAB PO PRN (11:06)
[2017-12-14 11:10] LABS: Glucose,Whole Blood 100 mg/dL (75-99)
[2017-12-14] MEDS: THIAMINE 100 MG TAB PO SCH (11:53)
--- NOTE | 2017-12-14 11:57 | US ---
EXAMINATION TYPE: US kidneys/renal and bladder DATE OF EXAM: 12/14/2017 COMPARISON: NONE CLINICAL HISTORY: diane. DIANE EXAM MEASUREMENTS: Right Kidney: 13.2 x 5.4 x 4.4 cm Left Kidney: 12.8 x 5.7 x 5.0 cm Right Kidney: at least 2 dense echogenic areas lower pole, largest = 0.7cm Left Kidney: multiple dense echogenic areas noted, largest = 1.7cm, hypoechoic masses laterally with largest = 3.0 x 2.8 x 2.5cm (this demonstrates increased through transmission compatible with a cyst) the smaller 1.3 cm lesion does not demonstrate clear increased through transmission. Bladder: not fully distended Bilateral Jets seen: No There is no evidence for hydronephrosis at this point in time. The urinary bladder is anechoic. IMPRESSION: 1. Bilateral nonobstructing renal calculi. No evidence of hydronephrosis. 2. Left renal cyst and second smaller hypoechoic left renal lesion that is not entirely cystic. Short -term follow-up could be performed or three-phase enhanced abdominal CT.
[2017-12-14] MEDS ORDERED: SODIUM CHLORIDE 0.9% 1,000 ML IV SCH (12:00)
--- NOTE | 2017-12-14 12:38 | US ---
EXAMINATION TYPE: US carotid duplex BILAT DATE OF EXAM: 12/14/2017 COMPARISON: NONE CLINICAL HISTORY: check for carotid stenosis. Stenosis, exam done portable EXAM MEASUREMENTS: RIGHT: Peak Systolic Velocity (PSV) cm/sec ----- Right CCA: 37.7 ----- Right ICA: 32.7 ----- Right ECA: 66.2 ICA/CCA ratio: 0.9 RIGHT: End Diastole cm/sec ----- Right CCA: 8.5 ----- Right ICA: 12.7 ----- Right ECA: 7.1 LEFT: Peak Systolic Velocity (PSV) cm/sec ----- Left CCA: 33.5 ----- Left ICA: 36.7 ----- Left ECA: 62.9 ICA/CCA ratio: 1.1 LEFT: End Diastole cm/sec ----- Left CCA: 8.0 ----- Left ICA: 11.8 ----- Left ECA: 8.3 VERTEBRALS (direction of flow): Right Vertebral: Antegrade Left Vertebral: Antegrade Rhythm: Normal No elevated velocities, no significant stenosis. IMPRESSION: No sonographic evidence of hemodynamically significant stenosis within either visualized arterial system. Minimal grayscale atheromatous plaquing.
--- NOTE | 2017-12-14 14:15 | P.PN ---
Subjective Progress Note Date: 12/14/17 Principal diagnosis: Cardiomyopathy This is a pleasant 52-year-old gentleman who presented to [facility] with symptoms of shortness of breath. Chest x-ray on admission there was suggestive of congestive heart failure and BNP level was elevated. Patient was also significantly hypertensive. He did have an echocardiogram with Doppler study performed there which revealed global hypokinesia with an ejection fraction in the range of 20%. He was admitted with acute systolic congestive heart failure. Patient was transferred here to [facility] to undergo a cardiac catheterization to rule out underlying coronary artery disease. Patient also has renal issues, being followed here by nephrology. Creatinine today is 1.5. Patient denies any chest discomfort states that his breathing is overall stable today. Dr. Chávez did have a lumbar station with nephrology today who cleared the patient to proceed with cardiac catheterization tomorrow. Patient is currently on aspirin 81 mg daily, Lipitor 40 mg daily, Coreg 6.25 mg twice a day, Catapres 0.1 mg daily, Apresoline 25 mg by mouth 3 times a day, Imdur 30 mg daily. Let pressure this morning 138/90 with a heart rate in the 70s, 98% on room air. Objective - Vital Signs Vital signs: Vital Signs Temp 96.7 F L 12/14/17 11:30 Pulse 71 12/14/17 11:30 Resp 18 12/14/17 11:30 BP 138/90 12/14/17 11:30 Pulse Ox 98 12/14/17 11:30 Intake & Output 12/13/17 12/14/17 12/14/17 18:59 06:59 18:59 Intake Total 530 480 Output Total 1000 1000 Balance -1000 530 -520 Weight 117.1 kg Intake: Oral 530 480 Output: Urine 1000 1000 Other: Voiding Method Urinal # Voids 3 - Exam PHYSICAL EXAMINATION: HEENT: Head is atraumatic, normocephalic. Pupils equal, round. Neck is supple. There is no elevated jugular venous pressure. HEART EXAMINATION: Heart S1, S2 normal. No murmur or gallop heard. CHEST EXAMINATION: Lungs are clear with fine rales to bilateral bases. ABDOMEN: Soft, nontender. Bowel sounds are heard. No organomegaly noted. EXTREMITIES: 2+ peripheral pulses with trace evidence of peripheral edema and no calf tenderness noted. NEUROLOGIC patient is awake, alert and oriented -3. . - Labs CBC & Chem 7: 12/14/17 05:38 12/14/17 05:38 Labs: Abnormal Lab Results - Last 24 Hours (Table) 12/13/17 12/13/17 12/13/17 Range/Units 16:33 18:25 21:00 WBC (3.8-10.6) k/uL RBC (4.30-5.90) m/uL MCV (80.0-100.0) fL MCH (25.0-35.0) pg Neutrophils # (1.3-7.7) k/uL Lymphocytes # (1.0-4.8) k/uL BUN (9-20) mg/dL Creatinine (0.66-1.25) mg/dL Glucose (74-99) mg/dL POC Glucose (mg/dL) 109 H 190 H (75-99) mg/dL Urine Protein Trace H (Negative) Urine Blood Trace H (Negative) Urine RBC 11 H (0-5) /hpf Uric Acid Crystals Occasional H (None) /hpf Amorphous Sediment Occasional H (None) /hpf Urine Mucus Rare H (None) /hpf 12/14/17 12/14/17 12/14/17 Range/Units 05:38 05:38 05:55 WBC 13.3 H (3.8-10.6) k/uL RBC 6.26 H (4.30-5.90) m/uL MCV 78.5 L (80.0-100.0) fL MCH 24.6 L (25.0-35.0) pg Neutrophils # 11.7 H (1.3-7.7) k/uL Lymphocytes # 0.9 L (1.0-4.8) k/uL BUN 45 H (9-20) mg/dL Creatinine 1.50 H (0.66-1.25) mg/dL Glucose 122 H (74-99) mg/dL POC Glucose (mg/dL) 113 H (75-99) mg/dL Urine Protein (Negative) Urine Blood (Negative) Urine RBC (0-5) /hpf Uric Acid Crystals (None) /hpf Amorphous Sediment (None) /hpf Urine Mucus (None) /hpf 12/14/17 Range/Units 11:09 WBC (3.8-10.6) k/uL RBC (4.30-5.90) m/uL MCV (80.0-100.0) fL MCH (25.0-35.0) pg Neutrophils # (1.3-7.7) k/uL Lymphocytes # (1.0-4.8) k/uL BUN (9-20) mg/dL Creatinine (0.66-1.25) mg/dL Glucose (74-99) mg/dL POC Glucose (mg/dL) 100 H (75-99) mg/dL Urine Protein (Negative) Urine Blood (Negative) Urine RBC (0-5) /hpf Uric Acid Crystals (None) /hpf Amorphous Sediment (None) /hpf Urine Mucus (None) /hpf Assessment and Plan Plan: Assessment and plan #1 systolic congestive heart failure acute on chronic #2 accelerated hypertension #3 cardiomyopathy, need to rule out possible significant ischemic cardiomyopathy. #4 acute kidney injury Plan Patient will be scheduled tomorrow to undergo cardiac catheterization, the risks and the benefits were explained to the patient in detail and he is willing to proceed. Patient will receive hydration prior to cardiac catheterization. DNP note has been reviewed, I agree with a documented findings and plan of care. Patient was seen and examined.
--- NOTE | 2017-12-14 15:26 | P.PN ---
Subjective Progress Note Date: 12/14/17 Principal diagnosis: Acute exacerbation of COPD and systolic congestive heart failure This is a 52-year-old male patient got transferred from [facility] for further evaluation and specifically the patient wanted some further cardiac evaluation including cardiac catheterization regarding possible coronary artery disease. The patient presented there with increased shortness of breath. The patient was having progressive dyspnea and orthopnea and increasing lower extremity edema. He is further having some increased cough and congestion. Chest x-ray was consistent with failure. The patient's troponins were negative. Echocardiogram shows impaired LV function with an ejection of 2025%. Based on that, the patient started on diuretics and he started improving. The plan was to proceed with a cardiac catheterization however the patient developed an acute kidney injury in the creatinine came up to 1.6. Currently the Lasix hold. Meanwhile the patient is improved significantly. The patient is receiving bronchodilators. The patient has a proBNP level of 2500. Sodium level is also elevated at 146. Chest x-ray was repeated here and it showed cardiomegaly and left basilar airspace disease and some COPD. The patient is a chronic smoker. This patient has smoked more than 35-40 pack years. No previous history of DVT or pulmonary embolism. No other previous history of asthma or cardiac disease. On 12/13/2017, the patient is doing well. His shortness of breath improved considerably. Noted the patient came into the hospital because of an acute COPD /CHF exacerbation. COPD exacerbation was treated with a combination of DuoNeb and IV Solu-Medrol. As for the CHF, the patient was found to have significant cardiomyopathy and as part of further workup the patient will need a cardiac catheterization. Nevertheless, the cath was placed on hold knowing that the patient developed some prerenal azotemia secondary to aggressive diuresis. The diuretics have to patient's volume status and he is less short of breath. Nevertheless, he has developed a acute kidney injury and the currently the Lasix is on hold. The renal function is improving. A cardiac catheter patient will be done once the renal function normalizes. We are avoiding nephrotoxic agents for now. His blood pressure is under well control. No other significant events over the past 24 hours. His emanating. He is utilizing a nicotine patch. Reevaluated today on 12/14/2017, patient is feeling better, breathing easier, awaiting cardiac catheterization once his renal functioning improves. Presently has no active pulmonary symptoms in spite of his underlying COPD. Labs were reviewed. Chest x-ray from the showed COPD cardiomegaly, and left lower lobe atelectasis. Objective - Vital Signs Vital signs: Vital Signs Temp 96.7 F L 12/14/17 11:30 Pulse 71 12/14/17 11:30 Resp 18 12/14/17 11:30 BP 138/90 12/14/17 11:30 Pulse Ox 98 12/14/17 11:30 Intake & Output 12/13/17 12/14/17 12/14/17 18:59 06:59 18:59 Intake Total 530 480 Output Total 1000 1000 Balance -1000 530 -520 Weight 117.1 kg Intake: Oral 530 480 Output: Urine 1000 1000 Other: Voiding Method Urinal # Voids 3 - Exam Physical Exam: Revealed a 52-year-old white male in no distress. Head: Atraumatic, normocephalic, Eyes: PERRLA, EOMI, no icterus. HEENT:[Neck is supple.] [No neck masses.] [No thyromegaly.] [No JVD.] Chest: [Diminished breath sounds at the bases, no crackles or rhonchi or wheezes.] Cardiac Exam: [Normal S1 and S2, no S3 gallop, no murmur.] Abdomen: [Soft, nontender, no megaly, no rebound, no guarding, normal bowel sounds.] Extremities: [No clubbing, no edema, no cyanosis.] Neurological Exam: [No focal neurologic deficit. Psychiatric: Normal mood, affect and mental status examination. Lymphatics: No lymphadenopathy.] - Labs CBC & Chem 7: 12/14/17 05:38 12/14/17 05:38 Labs: Abnormal Lab Results - Last 24 Hours (Table) 12/13/17 12/13/17 12/13/17 Range/Units 16:33 18:25 21:00 WBC (3.8-10.6) k/uL RBC (4.30-5.90) m/uL MCV (80.0-100.0) fL MCH (25.0-35.0) pg Neutrophils # (1.3-7.7) k/uL Lymphocytes # (1.0-4.8) k/uL BUN (9-20) mg/dL Creatinine (0.66-1.25) mg/dL Glucose (74-99) mg/dL POC Glucose (mg/dL) 109 H 190 H (75-99) mg/dL Urine Protein Trace H (Negative) Urine Blood Trace H (Negative) Urine RBC 11 H (0-5) /hpf Uric Acid Crystals Occasional H (None) /hpf Amorphous Sediment Occasional H (None) /hpf Urine Mucus Rare H (None) /hpf 12/14/17 12/14/17 12/14/17 Range/Units 05:38 05:38 05:55 WBC 13.3 H (3.8-10.6) k/uL RBC 6.26 H (4.30-5.90) m/uL MCV 78.5 L (80.0-100.0) fL MCH 24.6 L (25.0-35.0) pg Neutrophils # 11.7 H (1.3-7.7) k/uL Lymphocytes # 0.9 L (1.0-4.8) k/uL BUN 45 H (9-20) mg/dL Creatinine 1.50 H (0.66-1.25) mg/dL Glucose 122 H (74-99) mg/dL POC Glucose (mg/dL) 113 H (75-99) mg/dL Urine Protein (Negative) Urine Blood (Negative) Urine RBC (0-5) /hpf Uric Acid Crystals (None) /hpf Amorphous Sediment (None) /hpf Urine Mucus (None) /hpf 12/14/17 Range/Units 11:09 WBC (3.8-10.6) k/uL RBC (4.30-5.90) m/uL MCV (80.0-100.0) fL MCH (25.0-35.0) pg Neutrophils # (1.3-7.7) k/uL Lymphocytes # (1.0-4.8) k/uL BUN (9-20) mg/dL Creatinine (0.66-1.25) mg/dL Glucose (74-99) mg/dL POC Glucose (mg/dL) 100 H (75-99) mg/dL Urine Protein (Negative) Urine Blood (Negative) Urine RBC (0-5) /hpf Uric Acid Crystals (None) /hpf Amorphous Sediment (None) /hpf Urine Mucus (None) /hpf Assessment and Plan Assessment: 1 acute shortness of breath, related to a combination of COPD/CHF exacerbation, improving 2 COPD exacerbation, improving and the patient remains on DuoNeb and IV Solu- Medrol 3 congestion heart failure with an ejection fraction of 25%, currently off diuretics as the patient developed an acute kidney injury/prerenal azotemia. 4 increased lower extremity edema secondary to CHF, improved 5 acute kidney injury secondary to diuresis and the patient is currently off diuretics, and the renal function is improving and it creatinine is down to 1.3. The patient has a component of non-anion gap metabolic acidosis and the patient was started on oral bicarbonate. 6 hypertension 7 smoker Recommendation: Continue present treatment plan including bronchodilators, diuretics, patient is scheduled for possible cardiac catheterization in the next 24-48 hours. We'll continue to follow. Time with Patient: Less than 30
[2017-12-14 16:27] LABS: Glucose,Whole Blood 140 mg/dL (75-99)
--- NOTE | 2017-12-14 19:48 | P.PN ---
Subjective Progress Note Date: 12/14/17 Progress note being dictated for Dr. Tovar. Interval history: This is a 52-year-old gentleman admitted with congestive heart failure, possible cardiomyopathy of undetermined etiology, renal failure multiple other medical issues. Evaluated by cardiology and scheduled for cardiac catheterization tomorrow. Creatinine currently 1.5, diuretics on hold, maintained on oral sodium bicarb. Objective - Vital Signs Vital signs: Vital Signs Temp 96.8 F L 12/14/17 08:00 Pulse 72 12/14/17 10:09 Resp 18 12/14/17 08:00 BP 138/91 12/14/17 08:00 Pulse Ox 97 12/14/17 08:00 Intake & Output 12/13/17 12/14/17 12/14/17 18:59 06:59 18:59 Intake Total 530 240 Output Total 1000 1000 Balance -1000 530 -760 Weight 117.1 kg Intake: Oral 530 240 Output: Urine 1000 1000 Other: Voiding Method Urinal # Voids 3 - Exam PHYSICAL EXAM: VITAL SIGNS: As above GENERAL: Sitting up in bed, no acute distress HEENT: Conjunctivae normal. eyes normal. NECK: No JVD. No thyroid enlargement. No LNs CARDIOVASCULAR: S1, S2 muffled. No murmur RESPIRATION: Breath sounds diminished in the bases. No rhonchi, fine bibasilar crackles. ABDOMEN: Soft, nontender . No guarding. no masses palpable. Bowel sounds heard. LEGS: No edema. no swelling PSYCHIATRY: Alert and oriented -3, mood and affect normal. NERVOUS SYSTEM: Cranial N 2-12 grossly normal. Moves all 4 limbs. Diffuse weakness No focal deficits. - Labs CBC & Chem 7: 12/14/17 05:38 12/14/17 05:38 Labs: Abnormal Lab Results - Last 24 Hours (Table) 12/13/17 12/13/17 12/13/17 Range/Units 06:14 11:37 16:33 WBC (3.8-10.6) k/uL RBC (4.30-5.90) m/uL MCV (80.0-100.0) fL MCH (25.0-35.0) pg Neutrophils # (1.3-7.7) k/uL Lymphocytes # (1.0-4.8) k/uL Carbon Dioxide 20 L (22-30) mmol/L BUN 42 H (9-20) mg/dL Creatinine 1.34 H (0.66-1.25) mg/dL Glucose 126 H (74-99) mg/dL POC Glucose (mg/dL) 122 H 109 H (75-99) mg/dL Urine Protein (Negative) Urine Blood (Negative) Urine RBC (0-5) /hpf Uric Acid Crystals (None) /hpf Amorphous Sediment (None) /hpf Urine Mucus (None) /hpf 12/13/17 12/13/17 12/14/17 Range/Units 18:25 21:00 05:38 WBC 13.3 H (3.8-10.6) k/uL RBC 6.26 H (4.30-5.90) m/uL MCV 78.5 L (80.0-100.0) fL MCH 24.6 L (25.0-35.0) pg Neutrophils # 11.7 H (1.3-7.7) k/uL Lymphocytes # 0.9 L (1.0-4.8) k/uL Carbon Dioxide (22-30) mmol/L BUN (9-20) mg/dL Creatinine (0.66-1.25) mg/dL Glucose (74-99) mg/dL POC Glucose (mg/dL) 190 H (75-99) mg/dL Urine Protein Trace H (Negative) Urine Blood Trace H (Negative) Urine RBC 11 H (0-5) /hpf Uric Acid Crystals Occasional H (None) /hpf Amorphous Sediment Occasional H (None) /hpf Urine Mucus Rare H (None) /hpf 12/14/17 12/14/17 12/14/17 Range/Units 05:38 05:55 11:09 WBC (3.8-10.6) k/uL RBC (4.30-5.90) m/uL MCV (80.0-100.0) fL MCH (25.0-35.0) pg Neutrophils # (1.3-7.7) k/uL Lymphocytes # (1.0-4.8) k/uL Carbon Dioxide (22-30) mmol/L BUN 45 H (9-20) mg/dL Creatinine 1.50 H (0.66-1.25) mg/dL Glucose 122 H (74-99) mg/dL POC Glucose (mg/dL) 113 H 100 H (75-99) mg/dL Urine Protein (Negative) Urine Blood (Negative) Urine RBC (0-5) /hpf Uric Acid Crystals (None) /hpf Amorphous Sediment (None) /hpf Urine Mucus (None) /hpf Assessment and Plan Assessment: 1. Acute on chronic CHF exacerbation, EF 25-30% 2. Possible cardiomyopathy of undetermined etiology 3. Acute COPD exacerbation 4 history of nicotine dependence 5 acute renal failure, cardiorenal syndrome Plan: Continue on current medication regime , nebulized bronchodilators, steroids, monitoring and symptomatic treatment. Diuretics on hold as per nephrology. Renal ultrasound pending. Scheduled for cardiac catheterization tomorrow. Follow closely with nephrology , pulmonary and cardiology. Was monitoring of renal function with repeat labs ordered for a.m. The impression and plan of care has been dictated as directed. : I performed a history and examination of this patient, discussed the same with the dictator. I agree with the dictator's note ,documented as a scribe. Any additional findings or plans will be noted.
[2017-12-14 20:31] LABS: Glucose,Whole Blood 178 mg/dL (75-99)
[2017-12-15 06:07] LABS: Glucose,Whole Blood 123 mg/dL (75-99)
[2017-12-15] MEDS: methylPREDNISolone SOD SUCCI 125 MG/2 ML VIAL IV SCH ×2 (06:29)
[2017-12-15] MEDS: CARVEDILOL 6.25 MG TAB PO SCH ×2 (06:30→17:12)
[2017-12-15] MEDS: ATORVASTATIN 40 MG TAB PO SCH (06:30)
[2017-12-15] MEDS: PANTOPRAZOLE 40 MG TABLET PO SCH (06:30)
[2017-12-15 06:32] LABS: Basophils % (A) 0 %; Eosinophils % (A) 0 %; HCT 50.8 % (39.0-53.0); HGB 15.6 gm/dL (13.0-17.5); Hypochromasia Moderate; Lymphocytes # (A) 0.7 k/uL (1.0-4.8); Lymphocytes % (A) 6 %; MCH 23.9 pg (25.0-35.0); MCHC 30.8 g/dL (31.0-37.0); MCV 77.8 fL (80.0-100.0); Mean Platelet Volume 8.4; Monocytes # (A) 0.4 k/uL (0-1.0); Monocytes % (A) 4 %; Neutrophils # (A) 10.5 k/uL (1.3-7.7); Neutrophils % (A) 89 %; Platelet Count 234 k/uL (150-450); RBC 6.53 m/uL (4.30-5.90); WBC 11.8 k/uL (3.8-10.6)
[2017-12-15 06:56] LABS: Calcium 9.6 mg/dL (8.4-10.2); Potassium 4.5 mmol/L (3.5-5.1)
[2017-12-15] MEDS: INSULIN ASPART 100 UNIT/ML 1 ML 10 ML VIAL SQ SCH ×4 (08:02→21:49)
[2017-12-15] MEDS: hydrALAZINE HCL 25 MG TAB PO SCH (08:21)
[2017-12-15] MEDS: ISOSORBIDE MONONITRATE ER 30 MG TAB.ER.24H PO SCH (08:22)
[2017-12-15] MEDS ORDERED: ASPIRIN 325 MG TAB PO STA (08:39)
[2017-12-15] MEDS: ASPIRIN 81 MG PO SCH (08:41)
[2017-12-15] MEDS ORDERED: cloNIDine HCL 0.1 MG TAB PO SCH (09:00)
[2017-12-15] MEDS: BUDESONIDE 1 MG/2 ML NEBU INHALATION SCH ×2 (09:07→19:20)
[2017-12-15 09:55] VITALS: RESP 18
[2017-12-15] MEDS ORDERED: SODIUM CHLORIDE 0.9% 1,000 ML IV ONE (10:29)
[2017-12-15] MEDS ORDERED: MIDAZOLAM 2 MG/2 ML VIAL IV ONE (10:46)
[2017-12-15] MEDS ORDERED: fentaNYL (PF) 50 MCG/ML 2 ML AMP IV ONE (10:47)
[2017-12-15] MEDS ORDERED: LIDOCAINE 2% INJ 20 MG/ML SQ ONE (10:50)
[2017-12-15] MEDS ORDERED: IOPAMIDOL-370 125ML BTL INJ ONE (11:07)
[2017-12-15] MEDS ORDERED: RX INFO: IV CONTRAST WAS GIVEN 1 EACH MISC MISCELLANE PRN (11:17)
[2017-12-15 11:43] LABS: Glucose,Whole Blood 100 mg/dL (75-99)
--- NOTE | 2017-12-15 11:53 | P.PN ---
Subjective Patient is seen in follow-up for acute kidney injury. Unclear as to what his baseline renal function is. Creatinine is little improved at 1.42 today. Oral intake is good. No edema. Denies chest pain or shortness of breath. Admits to good urine output. He is noted to have ejection fraction of 30-35%. He underwent cardiac catheterization today which revealed no significant coronary artery disease per nurse. Vital signs are stable. General: The patient appeared well nourished and normally developed. HEENT: Head exam is unremarkable. Neck is without jugular venous distension. LUNGS: Lungs are clear to auscultation and percussion. Breath sounds decreased. HEART: Rate and Rhythm are regular. First and second heart sounds normal. No murmurs, rubs or gallops. ABDOMEN: Abdominal exam reveals normal bowel sounds. Non-tender and non- distended. No evidence of peritonitis. EXTREMITITES: No clubbing, cyanosis, or edema. Objective - Vital Signs Vital signs: Vital Signs Temp 97.5 F L 12/15/17 09:50 Pulse 68 12/15/17 09:50 Resp 18 12/15/17 09:50 BP 146/99 12/15/17 09:50 Pulse Ox 98 12/15/17 09:50 Intake & Output 12/14/17 12/15/17 12/15/17 18:59 06:59 18:59 Intake Total 840 75 Output Total 1000 1000 Balance -160 -1000 75 Weight 117.3 kg Intake: IV 75 Oral 840 0 Output: Urine 1000 1000 Other: Voiding Method Urinal # Voids 1 - Labs CBC & Chem 7: 12/15/17 06:13 12/15/17 06:13 Labs: Abnormal Lab Results - Last 24 Hours (Table) 12/14/17 12/14/17 12/15/17 Range/Units 16:24 20:29 06:04 WBC (3.8-10.6) k/uL RBC (4.30-5.90) m/uL MCV (80.0-100.0) fL MCH (25.0-35.0) pg MCHC (31.0-37.0) g/dL Neutrophils # (1.3-7.7) k/uL Lymphocytes # (1.0-4.8) k/uL Chloride (98-107) mmol/L Carbon Dioxide (22-30) mmol/L BUN (9-20) mg/dL Creatinine (0.66-1.25) mg/dL Glucose (74-99) mg/dL POC Glucose (mg/dL) 140 H 178 H 123 H (75-99) mg/dL 12/15/17 12/15/17 12/15/17 Range/Units 06:13 06:13 11:41 WBC 11.8 H (3.8-10.6) k/uL RBC 6.53 H (4.30-5.90) m/uL MCV 77.8 L (80.0-100.0) fL MCH 23.9 L (25.0-35.0) pg MCHC 30.8 L (31.0-37.0) g/dL Neutrophils # 10.5 H (1.3-7.7) k/uL Lymphocytes # 0.7 L (1.0-4.8) k/uL Chloride 108 H (98-107) mmol/L Carbon Dioxide 21 L (22-30) mmol/L BUN 43 H (9-20) mg/dL Creatinine 1.42 H (0.66-1.25) mg/dL Glucose 126 H (74-99) mg/dL POC Glucose (mg/dL) 100 H (75-99) mg/dL Assessment and Plan Plan: Assessment: #1. Nonoliguric acute kidney injury mostly prerenal secondary to cardiorenal syndrome. Creatinine was 1.6 on admission and did come down to 1.34 - 1.42 today. Unclear as to what his baseline renal function is. #2. Mild hypernatremia from free water losses from diuretics. #3. Metabolic acidosis secondary to acute kidney injury and IV fluids. #4. Systolic CHF with ejection fraction of 30%. Currently compensated. #5. Volume overload. Resolved. #6. COPD exacerbation maintained on steroids and bronchodilator therapy. Pulmonology following. #7. Benign hypertension. Controlled. Plan: Continue to hold diuretics for now. Maintain oral sodium bicarbonate 650 mg twice daily. Low-salt diet. I discussed with him the risk of worsening renal failure with exposure to IV dye. Patient understands. Continue to monitor renal function and urine output closely for the next 48-72 hours as the patient underwent cardiac catheterization today. Fluids can be discontinued in 4 hours.
--- NOTE | 2017-12-15 12:29 | CC ---
CARDIAC CATHETERIZATION REPORT Mr. Cazares is a 52-year-old gentleman who underwent cardiac catheterization to evaluate the cardiomyopathy. This patient was admitted with symptoms of congestive cardiac failure. Patient was found to have a severe degree of global hypokinesia with ejection fraction of 20% to 25%. Patient was medically stabilized and subsequently was advised cardiac catheterization. PROCEDURE: The right groin was prepped and prepped in the usual manner and the skin was infiltrated with 2% Xylocaine. The right femoral artery was entered using Seldinger technique and a 6-Malawian sheath was placed in. Selective coronary angiography was then performed in multiple projections and the left ventricular pressures were obtained. Sheath was removed and good hemostasis was achieved with the use of Angio-Seal. HEMODYNAMICS: Left ventricular end-diastolic pressure is 30 to 34 mmHg prior to angiography. No gradient is noted across the aortic valve. SELECTIVE CORONARY ANGIOGRAPHY: Left main coronary artery is normal and patent. LAD is a good caliber blood vessel and gives rise to good size diagonal branch. The diagonal branch has about mild 30% stenosis. There is a good intermediate branch, which is normal. Circumflex coronary artery is dominant in distribution and gives rise to the PDA and PLV branch. There is a mild disease noted in the PLV branch. Right coronary artery is small and nondominant. FINAL IMPRESSION: This study reveals mild coronary artery disease with about 30% stenosis in the diagonal branch and mild disease in the circumflex. RECOMMENDATION: Maximum medical therapy. MMODL / IJN: [id number] /
--- NOTE | 2017-12-15 13:00 | P.PN ---
Subjective Progress Note Date: 12/15/17 Principal diagnosis: Acute exacerbation of COPD and systolic congestive heart failure his is a 52-year-old male patient got transferred from [facility] for further evaluation and specifically the patient wanted some further cardiac evaluation including cardiac catheterization regarding possible coronary artery disease. The patient presented there with increased shortness of breath. The patient was having progressive dyspnea and orthopnea and increasing lower extremity edema. He is further having some increased cough and congestion. Chest x-ray was consistent with failure. The patient's troponins were negative. Echocardiogram shows impaired LV function with an ejection of 2025%. Based on that, the patient started on diuretics and he started improving. The plan was to proceed with a cardiac catheterization however the patient developed an acute kidney injury in the creatinine came up to 1.6. Currently the Lasix hold. Meanwhile the patient is improved significantly. The patient is receiving bronchodilators. The patient has a proBNP level of 2500. Sodium level is also elevated at 146. Chest x-ray was repeated here and it showed cardiomegaly and left basilar airspace disease and some COPD. The patient is a chronic smoker. This patient has smoked more than 35-40 pack years. No previous history of DVT or pulmonary embolism. No other previous history of asthma or cardiac disease. On 12/13/2017, the patient is doing well. His shortness of breath improved considerably. Noted the patient came into the hospital because of an acute COPD /CHF exacerbation. COPD exacerbation was treated with a combination of DuoNeb and IV Solu-Medrol. As for the CHF, the patient was found to have significant cardiomyopathy and as part of further workup the patient will need a cardiac catheterization. Nevertheless, the cath was placed on hold knowing that the patient developed some prerenal azotemia secondary to aggressive diuresis. The diuretics have to patient's volume status and he is less short of breath. Nevertheless, he has developed a acute kidney injury and the currently the Lasix is on hold. The renal function is improving. A cardiac catheter patient will be done once the renal function normalizes. We are avoiding nephrotoxic agents for now. His blood pressure is under well control. No other significant events over the past 24 hours. His emanating. He is utilizing a nicotine patch. Reevaluated today on 12/14/2017, patient is feeling better, breathing easier, awaiting cardiac catheterization once his renal functioning improves. Presently has no active pulmonary symptoms in spite of his underlying COPD. Labs were reviewed. Chest x-ray from the showed COPD cardiomegaly, and left lower lobe atelectasis. The patient is seen again today in the 2017 in follow-up. He is awake and alert in no acute distress. He denies any worsening shortness of breath, cough or congestion. He is maintaining good O2 saturations in the mid to upper 90s on room air. He's been hemodynamically stable. He did undergo cardiac catheterization today which revealed minimal coronary artery disease with about 30% stenosis of diagonal branch and mild disease in the circumflex. Medical therapy is recommended. Objective - Vital Signs Vital signs: Vital Signs Temp 97.5 F L 12/15/17 09:50 Pulse 97 12/15/17 12:15 Resp 18 12/15/17 12:15 BP 132/93 12/15/17 12:15 Pulse Ox 97 12/15/17 12:15 Intake & Output 12/14/17 12/15/17 12/15/17 18:59 06:59 18:59 Intake Total 840 75 Output Total 1000 1000 Balance -160 -1000 75 Weight 117.3 kg Intake: IV 75 Oral 840 0 Output: Urine 1000 1000 Other: Voiding Method Urinal # Voids 1 - Exam Physical Exam: Revealed a 52-year-old white male in no distress. Head: Atraumatic, normocephalic, Eyes: PERRLA, EOMI, no icterus. HEENT:[Neck is supple.] [No neck masses.] [No thyromegaly.] [No JVD.] Chest: [Diminished breath sounds at the bases, no crackles or rhonchi or wheezes.] Cardiac Exam: [Normal S1 and S2, no S3 gallop, no murmur.] Abdomen: [Soft, nontender, no megaly, no rebound, no guarding, normal bowel sounds.] Extremities: [No clubbing, no edema, no cyanosis.] Neurological Exam: [No focal neurologic deficit. Psychiatric: Normal mood, affect and mental status examination. Lymphatics: No lymphadenopathy. - Labs CBC & Chem 7: 12/15/17 06:13 12/15/17 06:13 Labs: Abnormal Lab Results - Last 24 Hours (Table) 12/14/17 12/14/17 12/15/17 Range/Units 16:24 20:29 06:04 WBC (3.8-10.6) k/uL RBC (4.30-5.90) m/uL MCV (80.0-100.0) fL MCH (25.0-35.0) pg MCHC (31.0-37.0) g/dL Neutrophils # (1.3-7.7) k/uL Lymphocytes # (1.0-4.8) k/uL Chloride (98-107) mmol/L Carbon Dioxide (22-30) mmol/L BUN (9-20) mg/dL Creatinine (0.66-1.25) mg/dL Glucose (74-99) mg/dL POC Glucose (mg/dL) 140 H 178 H 123 H (75-99) mg/dL 12/15/17 12/15/17 12/15/17 Range/Units 06:13 06:13 11:41 WBC 11.8 H (3.8-10.6) k/uL RBC 6.53 H (4.30-5.90) m/uL MCV 77.8 L (80.0-100.0) fL MCH 23.9 L (25.0-35.0) pg MCHC 30.8 L (31.0-37.0) g/dL Neutrophils # 10.5 H (1.3-7.7) k/uL Lymphocytes # 0.7 L (1.0-4.8) k/uL Chloride 108 H (98-107) mmol/L Carbon Dioxide 21 L (22-30) mmol/L BUN 43 H (9-20) mg/dL Creatinine 1.42 H (0.66-1.25) mg/dL Glucose 126 H (74-99) mg/dL POC Glucose (mg/dL) 100 H (75-99) mg/dL Assessment and Plan Assessment: 1 acute shortness of breath, related to a combination of COPD/CHF exacerbation, improving 2 COPD exacerbation, improving and the patient remains on DuoNeb and Pulmicort 3 congestion heart failure with an ejection fraction of 25%, currently off diuretics as the patient developed an acute kidney injury/prerenal azotemia. 4 increased lower extremity edema secondary to CHF, improved 5 acute kidney injury secondary to diuresis and the patient is currently off diuretics, and the renal function is improving and it creatinine is down to 1.3. The patient has a component of non-anion gap metabolic acidosis and the patient was started on oral bicarbonate. 6 hypertension 7 smoker Recommendation: The patient was seen and evaluated by Dr. Turk. He is improved from pulmonary standpoint. Cardiac cath revealed no significant coronary artery disease. He is cleared for discharge from the pulmonary standpoint. He'll follow-up in our office in 1-2 weeks' time. He should undergo full pulmonary function testing to evaluate the severity of his suspected COPD. Continue prednisone taper. Symbicort and Ventolin HFA. He is again educated regarding the importance of complete smoking cessation. Continue NicoDerm patch. I, the cosigning physician, performed a history & physical examination of the patient. Lungs sounds are clear. Maintaining good O2 saturations in the 90s on room air. I discussed the assessment and plan of care with my nurse practitioner, Charley Yoder. I attest to the above note as dictated by her.
[2017-12-15] MEDS: SODIUM CHLORIDE 0.9% 1,000 ML IV SCH (14:38)
[2017-12-15] MEDS: HEPARIN SODIUM,PORCINE 5,000 UNIT/ML 1 ML VIAL SQ SCH ×2 (14:42→21:49)
[2017-12-15] MEDS: THIAMINE 100 MG TAB PO SCH (14:43)
[2017-12-15] MEDS: NICOTINE 14MG/24HR PATCH TRANSDERM SCH (14:43)
[2017-12-15] MEDS: SODIUM BICARBONATE TAB 650 MG TAB PO SCH ×2 (14:43→21:48)
[2017-12-15 16:52] LABS: Glucose,Whole Blood 126 mg/dL (75-99)
[2017-12-15] MEDS: hydrALAZINE HCL 50 MG TAB PO SCH ×2 (17:21→21:49)
--- NOTE | 2017-12-15 17:25 | P.PN ---
Subjective Progress Note Date: 12/15/17 Progress note being dictated for Dr. Tovar. Interval history: This is a 52-year-old gentleman admitted with congestive heart failure, possible cardiomyopathy of undetermined etiology, renal failure multiple other medical issues. Evaluated by cardiology and scheduled for cardiac catheterization tomorrow. Creatinine currently 1.5, diuretics on hold, maintained on oral sodium bicarb. 12/15/2017. Breathing continues to improve.Cardiac cath today, reporting minimal coronary artery disease, 30% stenosis of diagonal branch and mild disease of the circumflex. Maximizing Medical therapy recommended. Creatinine 1.42. Denies chest pain, palpitations or increasing shortness of breath. Objective - Vital Signs Vital signs: Vital Signs Temp 97.5 F L 12/15/17 09:50 Pulse 94 12/15/17 12:45 Resp 18 12/15/17 12:45 BP 127/83 12/15/17 12:45 Pulse Ox 94 L 12/15/17 12:45 Intake & Output 12/14/17 12/15/17 12/15/17 18:59 06:59 18:59 Intake Total 840 555 Output Total 1000 1000 300 Balance -160 -1000 255 Weight 117.3 kg Intake: IV 75 Oral 840 480 Output: Urine 1000 1000 300 Other: Voiding Method Urinal # Voids 1 - Exam PHYSICAL EXAM: VITAL SIGNS: As above GENERAL: Sitting up in bed, no acute distress HEENT: Conjunctivae normal. eyes normal. NECK: No JVD. No thyroid enlargement. No LNs CARDIOVASCULAR: S1, S2 muffled. No murmur RESPIRATION: Breath sounds diminished in the bases. No rhonchi, occasional fine bibasilar crackles. ABDOMEN: Soft, nontender . No guarding. no masses palpable. Bowel sounds heard. LEGS: No edema. no swelling PSYCHIATRY: Alert and oriented -3, mood and affect normal. NERVOUS SYSTEM: Cranial N 2-12 grossly normal. Moves all 4 limbs. Diffuse weakness No focal deficits. - Labs CBC & Chem 7: 12/15/17 06:13 12/15/17 06:13 Labs: Abnormal Lab Results - Last 24 Hours (Table) 12/14/17 12/14/17 12/15/17 Range/Units 16:24 20:29 06:04 WBC (3.8-10.6) k/uL RBC (4.30-5.90) m/uL MCV (80.0-100.0) fL MCH (25.0-35.0) pg MCHC (31.0-37.0) g/dL Neutrophils # (1.3-7.7) k/uL Lymphocytes # (1.0-4.8) k/uL Chloride (98-107) mmol/L Carbon Dioxide (22-30) mmol/L BUN (9-20) mg/dL Creatinine (0.66-1.25) mg/dL Glucose (74-99) mg/dL POC Glucose (mg/dL) 140 H 178 H 123 H (75-99) mg/dL 12/15/17 12/15/17 12/15/17 Range/Units 06:13 06:13 11:41 WBC 11.8 H (3.8-10.6) k/uL RBC 6.53 H (4.30-5.90) m/uL MCV 77.8 L (80.0-100.0) fL MCH 23.9 L (25.0-35.0) pg MCHC 30.8 L (31.0-37.0) g/dL Neutrophils # 10.5 H (1.3-7.7) k/uL Lymphocytes # 0.7 L (1.0-4.8) k/uL Chloride 108 H (98-107) mmol/L Carbon Dioxide 21 L (22-30) mmol/L BUN 43 H (9-20) mg/dL Creatinine 1.42 H (0.66-1.25) mg/dL Glucose 126 H (74-99) mg/dL POC Glucose (mg/dL) 100 H (75-99) mg/dL Assessment and Plan Assessment: 1. Acute on chronic CHF exacerbation, EF 25-30% 2. Possible cardiomyopathy of undetermined etiology; status post cardiac catheterization,minimal coronary artery disease, 30% stenosis of diagonal branch and mild disease of the circumflex. Medical therapy recommended. 3. Acute COPD exacerbation 4 history of nicotine dependence 5 acute renal failure, cardiorenal syndrome Plan: Continue on current medication regime , oral sodium bicarb, nebulized bronchodilators, steroids, monitoring and symptomatic treatment. Diuretics remain on hold. Cautious IV fluids as per nephrology. Close monitoring of renal function with repeat labs ordered for a.m. The impression and plan of care has been dictated as directed. : I performed a history and examination of this patient, discussed the same with the dictator. I agree with the dictator's note ,documented as a scribe. Any additional findings or plans will be noted.
[2017-12-15 20:05] LABS: Glucose,Whole Blood 131 mg/dL (75-99)
[2017-12-16] MEDS: SODIUM CHLORIDE 0.9% 1,000 ML IV SCH ×2 (05:15→12:28)
[2017-12-16 06:14] LABS: Glucose,Whole Blood 86 mg/dL (75-99)
[2017-12-16 06:29] LABS: Basophils % (A) 0 %; Eosinophils % (A) 0 %; HCT 48.9 % (39.0-53.0); HGB 15.1 gm/dL (13.0-17.5); Hypochromasia Slight; Lymphocytes # (A) 1.3 k/uL (1.0-4.8); Lymphocytes % (A) 16 %; MCH 23.8 pg (25.0-35.0); MCHC 30.8 g/dL (31.0-37.0); MCV 77.5 fL (80.0-100.0); Mean Platelet Volume 7.8; Monocytes # (A) 0.8 k/uL (0-1.0); Monocytes % (A) 9 %; Neutrophils # (A) 5.8 k/uL (1.3-7.7); Neutrophils % (A) 71 %; Platelet Count 197 k/uL (150-450); RBC 6.32 m/uL (4.30-5.90); RDW 14.6 % (11.5-15.5); WBC 8.2 k/uL (3.8-10.6)
[2017-12-16 06:37] LABS: Calcium 9.2 mg/dL (8.4-10.2); Potassium 4.5 mmol/L (3.5-5.1)
[2017-12-16] MEDS: CARVEDILOL 6.25 MG TAB PO SCH (06:53)
[2017-12-16] MEDS: PANTOPRAZOLE 40 MG TABLET PO SCH (06:53)
[2017-12-16] MEDS: INSULIN ASPART 100 UNIT/ML 1 ML 10 ML VIAL SQ SCH ×2 (08:09→12:28)
[2017-12-16] MEDS: ASPIRIN 81 MG PO SCH (08:11)
[2017-12-16] MEDS: HEPARIN SODIUM,PORCINE 5,000 UNIT/ML 1 ML VIAL SQ SCH (08:11)
[2017-12-16] MEDS: THIAMINE 100 MG TAB PO SCH (08:11)
[2017-12-16] MEDS: hydrALAZINE HCL 50 MG TAB PO SCH ×2 (08:11→08:17)
[2017-12-16] MEDS: ATORVASTATIN 40 MG TAB PO SCH (08:11)
[2017-12-16] MEDS: SODIUM BICARBONATE TAB 650 MG TAB PO SCH (08:11)
[2017-12-16] MEDS: ISOSORBIDE MONONITRATE ER 30 MG TAB.ER.24H PO SCH (08:11)
[2017-12-16] MEDS: NICOTINE 14MG/24HR PATCH TRANSDERM SCH (08:18)
[2017-12-16] MEDS ORDERED: SACUBITRIL/VALSARTAN 24 MG-26 MG TABLET PO SCH (09:00)
[2017-12-16] MEDS ORDERED: FUROSEMIDE 40 MG TAB PO SCH (09:00)
[2017-12-16] MEDS ORDERED: predniSONE 20 MG TAB PO SCH (09:00)
[2017-12-16] MEDS: BUDESONIDE 1 MG/2 ML NEBU INHALATION SCH (09:08)
[2017-12-16 09:21] VITALS: PULSE 60; TEMP 97.2
--- NOTE | 2017-12-16 09:26 | P.PN ---
Subjective Patient is seen in follow-up for acute kidney injury. Unclear as to what his baseline renal function is. Creatinine is little improved at 1.4 today. Oral intake is good. No edema. Denies chest pain or shortness of breath. Admits to good urine output. He is noted to have ejection fraction of 30-35%. He underwent cardiac catheterization on December 15 which revealed mild coronary artery disease. He is eager to go home. No active complaints at this time. Vital signs are stable. General: The patient appeared well nourished and normally developed. HEENT: Head exam is unremarkable. Neck is without jugular venous distension. LUNGS: Lungs are clear to auscultation and percussion. Breath sounds decreased. HEART: Rate and Rhythm are regular. First and second heart sounds normal. No murmurs, rubs or gallops. ABDOMEN: Abdominal exam reveals normal bowel sounds. Non-tender and non- distended. No evidence of peritonitis. EXTREMITITES: No clubbing, cyanosis, or edema. Objective - Vital Signs Vital signs: Vital Signs Temp 97.2 F L 12/16/17 08:00 Pulse 60 12/16/17 08:00 Resp 18 12/16/17 08:00 BP 133/75 12/16/17 08:00 Pulse Ox 95 12/16/17 08:00 Intake & Output 12/15/17 12/16/17 12/16/17 18:59 06:59 18:59 Intake Total 905 350 350 Output Total 300 300 Balance 605 50 350 Weight 120.7 kg Intake: IV 75 Oral 830 350 350 Output: Urine 300 300 Other: Voiding Method Urinal # Voids 2 1 - Labs CBC & Chem 7: 12/16/17 06:00 12/16/17 06:00 Labs: Abnormal Lab Results - Last 24 Hours (Table) 12/15/17 12/15/17 12/15/17 Range/Units 11:41 16:50 20:03 RBC (4.30-5.90) m/uL MCV (80.0-100.0) fL MCH (25.0-35.0) pg MCHC (31.0-37.0) g/dL Chloride (98-107) mmol/L Carbon Dioxide (22-30) mmol/L BUN (9-20) mg/dL Creatinine (0.66-1.25) mg/dL POC Glucose (mg/dL) 100 H 126 H 131 H (75-99) mg/dL 12/16/17 12/16/17 Range/Units 06:00 06:00 RBC 6.32 H (4.30-5.90) m/uL MCV 77.5 L (80.0-100.0) fL MCH 23.8 L (25.0-35.0) pg MCHC 30.8 L (31.0-37.0) g/dL Chloride 108 H (98-107) mmol/L Carbon Dioxide 21 L (22-30) mmol/L BUN 46 H (9-20) mg/dL Creatinine 1.40 H (0.66-1.25) mg/dL POC Glucose (mg/dL) (75-99) mg/dL Assessment and Plan Plan: Assessment: #1. Nonoliguric acute kidney injury mostly prerenal secondary to cardiorenal syndrome. Creatinine was 1.6 on admission and did come down to 1.34 - 1.4 today. Unclear as to what his baseline renal function is. #2. Mild hypernatremia from free water losses from diuretics. Improved. #3. Metabolic acidosis secondary to acute kidney injury and IV fluids. #4. Systolic CHF with ejection fraction of 30%. Currently compensated. #5. Volume overload. Resolved. #6. COPD exacerbation maintained on steroids and bronchodilator therapy. Pulmonology following. #7. Benign hypertension. Controlled. Plan: Resume Lasix 40 mg orally once daily. Maintain oral sodium bicarbonate 650 mg twice daily. Low-salt diet. I discussed with him the risk of worsening renal failure with exposure to IV dye , which typically peaks at 48-72 hours. Patient understands. nticipate discharge soon. He will need to get a basic metabolic panel checked on Thursday and follow-up as an outpatient in the next 1-2 weeks.
[2017-12-16 11:36] LABS: Glucose,Whole Blood 92 mg/dL (75-99)
[2017-12-16 12:33] VITALS: BP 135/82
--- NOTE | 2017-12-16 13:24 | P.PN ---
Subjective Progress Note Date: 12/16/17 Principal diagnosis: Acute exacerbation of COPD and systolic congestive heart failure his is a 52-year-old male patient got transferred from [facility] for further evaluation and specifically the patient wanted some further cardiac evaluation including cardiac catheterization regarding possible coronary artery disease. The patient presented there with increased shortness of breath. The patient was having progressive dyspnea and orthopnea and increasing lower extremity edema. He is further having some increased cough and congestion. Chest x-ray was consistent with failure. The patient's troponins were negative. Echocardiogram shows impaired LV function with an ejection of 2025%. Based on that, the patient started on diuretics and he started improving. The plan was to proceed with a cardiac catheterization however the patient developed an acute kidney injury in the creatinine came up to 1.6. Currently the Lasix hold. Meanwhile the patient is improved significantly. The patient is receiving bronchodilators. The patient has a proBNP level of 2500. Sodium level is also elevated at 146. Chest x-ray was repeated here and it showed cardiomegaly and left basilar airspace disease and some COPD. The patient is a chronic smoker. This patient has smoked more than 35-40 pack years. No previous history of DVT or pulmonary embolism. No other previous history of asthma or cardiac disease. On 12/13/2017, the patient is doing well. His shortness of breath improved considerably. Noted the patient came into the hospital because of an acute COPD /CHF exacerbation. COPD exacerbation was treated with a combination of DuoNeb and IV Solu-Medrol. As for the CHF, the patient was found to have significant cardiomyopathy and as part of further workup the patient will need a cardiac catheterization. Nevertheless, the cath was placed on hold knowing that the patient developed some prerenal azotemia secondary to aggressive diuresis. The diuretics have to patient's volume status and he is less short of breath. Nevertheless, he has developed a acute kidney injury and the currently the Lasix is on hold. The renal function is improving. A cardiac catheter patient will be done once the renal function normalizes. We are avoiding nephrotoxic agents for now. His blood pressure is under well control. No other significant events over the past 24 hours. His emanating. He is utilizing a nicotine patch. Reevaluated today on 12/14/2017, patient is feeling better, breathing easier, awaiting cardiac catheterization once his renal functioning improves. Presently has no active pulmonary symptoms in spite of his underlying COPD. Labs were reviewed. Chest x-ray from the showed COPD cardiomegaly, and left lower lobe atelectasis. The patient is seen again today in the 2017 in follow-up. He is awake and alert in no acute distress. He denies any worsening shortness of breath, cough or congestion. He is maintaining good O2 saturations in the mid to upper 90s on room air. He's been hemodynamically stable. He did undergo cardiac catheterization today which revealed minimal coronary artery disease with about 30% stenosis of diagonal branch and mild disease in the circumflex. Medical therapy is recommended. The patient is seen again today 12/16/2017 in follow-up on the selective care unit. He is currently resting comfortably in bed. He is awake and alert in no acute distress. He denies any shortness of breath, cough or congestion. He continues to maintain good O2 saturations in the 90s on room air. He denies any chest pain, palpitations lightheadedness or dizziness. He is anxious to go home. Objective - Vital Signs Vital signs: Vital Signs Temp 97.2 F L 12/16/17 12:00 Pulse 60 12/16/17 12:00 Resp 18 12/16/17 12:00 BP 135/82 12/16/17 12:00 Pulse Ox 96 12/16/17 12:00 Intake & Output 12/15/17 12/16/17 12/16/17 18:59 06:59 18:59 Intake Total 905 350 350 Output Total 300 300 Balance 605 50 350 Weight 120.7 kg Intake: IV 75 Oral 830 350 350 Output: Urine 300 300 Other: Voiding Method Urinal # Voids 2 1 - Exam Physical Exam: Revealed a 52-year-old white male in no distress. Head: Atraumatic, normocephalic, Eyes: PERRLA, EOMI, no icterus. HEENT:[Neck is supple.] [No neck masses.] [No thyromegaly.] [No JVD.] Chest: [Diminished breath sounds at the bases, no crackles or rhonchi or wheezes.] Cardiac Exam: [Normal S1 and S2, no S3 gallop, no murmur.] Abdomen: [Soft, nontender, no megaly, no rebound, no guarding, normal bowel sounds.] Extremities: [No clubbing, no edema, no cyanosis.] Neurological Exam: [No focal neurologic deficit. Psychiatric: Normal mood, affect and mental status examination. Lymphatics: No lymphadenopathy. - Labs CBC & Chem 7: 12/16/17 06:00 12/16/17 06:00 Labs: Abnormal Lab Results - Last 24 Hours (Table) 12/15/17 12/15/17 12/16/17 Range/Units 16:50 20:03 06:00 RBC 6.32 H (4.30-5.90) m/uL MCV 77.5 L (80.0-100.0) fL MCH 23.8 L (25.0-35.0) pg MCHC 30.8 L (31.0-37.0) g/dL Chloride (98-107) mmol/L Carbon Dioxide (22-30) mmol/L BUN (9-20) mg/dL Creatinine (0.66-1.25) mg/dL POC Glucose (mg/dL) 126 H 131 H (75-99) mg/dL 12/16/17 Range/Units 06:00 RBC (4.30-5.90) m/uL MCV (80.0-100.0) fL MCH (25.0-35.0) pg MCHC (31.0-37.0) g/dL Chloride 108 H (98-107) mmol/L Carbon Dioxide 21 L (22-30) mmol/L BUN 46 H (9-20) mg/dL Creatinine 1.40 H (0.66-1.25) mg/dL POC Glucose (mg/dL) (75-99) mg/dL Assessment and Plan Assessment: 1 acute shortness of breath, related to a combination of COPD/CHF exacerbation, improving 2 COPD exacerbation, improving and the patient remains on DuoNeb and Pulmicort 3 congestion heart failure with an ejection fraction of 25%, currently off diuretics as the patient developed an acute kidney injury/prerenal azotemia. 4 increased lower extremity edema secondary to CHF, improved 5 acute kidney injury secondary to diuresis and the patient is currently off diuretics, and the renal function is improving and it creatinine is down to 1.40. The patient has a component of non-anion gap metabolic acidosis and the patient was started on oral bicarbonate. 6 hypertension 7 smoker Recommendation: The patient was seen and evaluated by Dr. Fang. He is cleared for discharge from the pulmonary standpoint. He'll follow-up in our office in 1-2 weeks' time. He should undergo full pulmonary function testing to evaluate the severity of his suspected COPD. Continue prednisone taper. Symbicort and Ventolin HFA. He is again educated regarding the importance of complete smoking cessation. Continue NicoDerm patch. He is instructed to call sooner with any recurrence of symptoms or any other questions or concerns. I, the cosigning physician, performed a history & physical examination of the patient. Lungs sounds are clear. Maintaining good O2 saturations in the 90s on room air. I discussed the assessment and plan of care with my nurse practitioner, Charley Yoder. I attest to the above note as dictated by her.
--- NOTE | 2017-12-16 16:25 | P.PN ---
Subjective Progress Note Date: 12/16/17 Principal diagnosis: Cardiomyopathy This is a pleasant 52-year-old gentleman who presented to [facility] with symptoms of shortness of breath. Chest x-ray on admission there was suggestive of congestive heart failure and BNP level was elevated. Patient was also significantly hypertensive. He did have an echocardiogram with Doppler study performed there which revealed global hypokinesia with an ejection fraction in the range of 20%. He was admitted with acute systolic congestive heart failure. Patient was transferred here to [facility] to undergo a cardiac catheterization to rule out underlying coronary artery disease. Patient also has renal issues, being followed here by nephrology. Creatinine today is 1.5. Patient denies any chest discomfort states that his breathing is overall stable today. Dr. Chávez did have a lumbar station with nephrology today who cleared the patient to proceed with cardiac catheterization tomorrow. Patient is currently on aspirin 81 mg daily, Lipitor 40 mg daily, Coreg 6.25 mg twice a day, Catapres 0.1 mg daily, Apresoline 25 mg by mouth 3 times a day, Imdur 30 mg daily. Let pressure this morning 138/90 with a heart rate in the 70s, 98% on room air. 12/16/2017 Patient seen and examined this morning, he underwent a cardiac catheterization yesterday by Dr. VC Emerson which revealed mild coronary artery disease with about 30% stenosis in the diagonal branch and mild disease in the circumflex, medical therapy was advised. Patient was seen and examined this morning, overall feeling well, breathing stable. Sodium 141, potassium 4.5, BUN 46, creatinine 1.4. The pressure 122/80 with a heart rate in the 60s, 97% on room air. Patient will be discharged home later today on aspirin 81 mg daily, Lipitor 40 mg daily, Coreg 6.25 mg by mouth twice a day, Lasix 40 mg daily, hydralazine 50 mg 3 times a day, Imdur 30 mg daily, Habitrol patch, entrust O 24 /26 mg twice a day, Aldactone 25 mg daily. A follow-up appointment will be made with Dr. VC Emerson in the office in one week. Lytes BUN and creatinine will be obtained in a week. Objective - Vital Signs Vital signs: Vital Signs Temp 97.2 F L 12/16/17 12:00 Pulse 60 04/25/18 12:00 Resp 18 12/16/17 12:00 BP 135/82 12/16/17 12:00 Pulse Ox 96 12/16/17 12:00 Intake & Output 12/15/17 12/16/17 12/16/17 18:59 06:59 18:59 Intake Total 905 350 350 Output Total 300 300 Balance 605 50 350 Weight 120.7 kg Intake: IV 75 Oral 830 350 350 Output: Urine 300 300 Other: Voiding Method Urinal # Voids 2 1 3 - Exam PHYSICAL EXAMINATION: HEENT: Head is atraumatic, normocephalic. Pupils equal, round. Neck is supple. There is no elevated jugular venous pressure. HEART EXAMINATION: Heart S1, S2 normal. No murmur or gallop heard. CHEST EXAMINATION: Lungs are clear with fine rales to bilateral bases. ABDOMEN: Soft, nontender. Bowel sounds are heard. No organomegaly noted. Right groin soft, no evidence of any hematoma. EXTREMITIES: 2+ peripheral pulses with trace evidence of peripheral edema and no calf tenderness noted. NEUROLOGIC patient is awake, alert and oriented -3. . - Labs CBC & Chem 7: 12/16/17 06:00 12/16/17 06:00 Labs: Abnormal Lab Results - Last 24 Hours (Table) 12/15/17 12/15/17 12/16/17 Range/Units 16:50 20:03 06:00 RBC 6.32 H (4.30-5.90) m/uL MCV 77.5 L (80.0-100.0) fL MCH 23.8 L (25.0-35.0) pg MCHC 30.8 L (31.0-37.0) g/dL Chloride (98-107) mmol/L Carbon Dioxide (22-30) mmol/L BUN (9-20) mg/dL Creatinine (0.66-1.25) mg/dL POC Glucose (mg/dL) 126 H 131 H (75-99) mg/dL 12/16/17 Range/Units 06:00 RBC (4.30-5.90) m/uL MCV (80.0-100.0) fL MCH (25.0-35.0) pg MCHC (31.0-37.0) g/dL Chloride 108 H (98-107) mmol/L Carbon Dioxide 21 L (22-30) mmol/L BUN 46 H (9-20) mg/dL Creatinine 1.40 H (0.66-1.25) mg/dL POC Glucose (mg/dL) (75-99) mg/dL Assessment and Plan Plan: Assessment and plan #1 systolic congestive heart failure acute on chronic #2 accelerated hypertension #3 cardiomyopathy, need to rule out possible significant ischemic cardiomyopathy. #4 acute kidney injury Plan Patient underwent a cardiac catheterization yesterday that did not reveal any significant obstructive coronary artery disease. Patient will be discharged home today, follow-up with Dr. VC Emerson in the office in one week. Lytes BUN and creatinine in one week. DNP note has been reviewed, I agree with a documented findings and plan of care. Patient was seen and examined.
--- NOTE | 2017-12-16 22:21 | DS ---
DISCHARGE SUMMARY DATE OF SERVICE: 12/16/2017 FINAL DIAGNOSES: 1. Congestive heart failure, acute exacerbation, acute on chronic systolic dysfunction with ejection fraction 25% to 30%. 2. Possible cardiomyopathy, nonischemic; undetermined etiology. 3. Cardiac catheterization showed minimal coronary artery disease; 30% of the diagonal branch and mild disease in circumflex, on medical treatment. 4. Chronic obstructive pulmonary disease exacerbation. 5. History of nicotine dependence. 6. Acute renal failure with cardiorenal syndrome. 7. Bilateral renal calculi. DISCHARGE DISPOSITION: The patient will be discharged in stable condition with guarded prognosis. HISTORY OF PRESENT ILLNESS: This 52-year-old gentleman with a past medical history of multiple medical problems had new-onset CHF, evaluated for possible cardiomyopathy. Cardiac catheterization showed above-mentioned findings. Medical treatment was recommended and the patient will be followed in the outpatient setting. On exam, vitals are stable. CARDIOVASCULAR SYSTEM: S1, S2 muffled. ABDOMEN: Soft. NERVOUS SYSTEM: No focal deficit. Carotid ultrasound was also done which showed no significant stenosis. Abdominal bladder ultrasound was also done which showed bilateral non-obstructing calculi. DISCHARGE ADVICE AND MEDICATIONS: 1. Diet is cardiac. 2. Activity limited until followup. 3. Fluid restriction 1500 mL per 24 hours. 4. Follow up with Dr. Adrienne Alexander in 2-3 days. 5. Follow up with Dr. Joyner as recommended. 6. Follow up with Dr. Milagros Emerson as recommended. 7. Follow up with Dr. Fang as recommended. 8. ProAir HFA 2 puffs q.6 p.r.n. 9. Aspirin 81 mg p.o. daily. 10.Lipitor 40 mg p.o. daily. 11.Symbicort 160/4.5 two puffs b.i.d. 12.Coreg 6.25 mg p.o. b.i.d. 13.Lasix 40 mg p.o. daily. 14.Apresoline 50 mg p.o. t.i.d. 15.Imdur ER 30 mg p.o. daily. 16.Habitrol 14 daily. 17.Protonix 40 mg daily. 18.Prednisone taper: 40 mg daily for 3 days; 30 for 3 days; 20 for 3 days; 10 for 3 days. 19.Entresto 24 one p.o. b.i.d. 20.Sodium bicarb 650 mg p.o. b.i.d. 21.Vitamin B1 100 mg p.o. daily. Once again, the patient will be discharged in stable condition with guarded prognosis. JA / BENNIEN: [id number] /
[2017-12-17] MEDS ORDERED: SPIRONOLACTONE 25 MG TAB PO SCH (09:00)
== END 2017-12-16 16:21 | disposition home or self-care (01) | DRG 286 ==
LOC: 6SEL 20:10 → EDBD 20:10 → OBSVTOIN 20:10
PROVIDERS: ADMIT Hospitalist; ATTEND Hospitalist
PROC: B2111ZZ Fluoroscopy of Multiple Coronary Arteries using Low Osmolar Contrast (ICD-10-PCS; 2017-12-15)
PROC: 4A023N7 Measurement of Cardiac Sampling and Pressure, Left Heart, Percutaneous Approach (ICD-10-PCS; principal; 2017-12-15 10:20)
DX: I13.0 Hypertensive heart and chronic kidney disease with heart failure and stage 1 through stage 4 chronic kidney disease, or unspecified chronic kidney disease (principal); I50.23 Acute on chronic systolic (congestive) heart failure; E87.0 Hyperosmolality and hypernatremia; N17.9 Acute kidney failure, unspecified; E87.2 Acidosis; N18.3 Chronic kidney disease, stage 3 (moderate); E87.1 Hypo-osmolality and hyponatremia; J44.1 Chronic obstructive pulmonary disease with (acute) exacerbation; J98.11 Atelectasis; I42.9 Cardiomyopathy, unspecified; N20.0 Calculus of kidney; I25.10 Atherosclerotic heart disease of native coronary artery without angina pectoris; F17.210 Nicotine dependence, cigarettes, uncomplicated; T50.2X5A Adverse effect of carbonic-anhydrase inhibitors, benzothiadiazides and other diuretics, initial encounter; Z79.82 Long term (current) use of aspirin; Z79.52 Long term (current) use of systemic steroids; Z90.49 Acquired absence of other specified parts of digestive tract; Z71.6 Tobacco abuse counseling; Z79.899 Other long term (current) drug therapy; Z82.49 Family history of ischemic heart disease and other diseases of the circulatory system; Z87.19 Personal history of other diseases of the digestive system
CPT/HCPCS: 71045; 71046; 76770; 80048; 80053; 80061; 81001; 83036; 83880; 85025; 93306; 93458; 93880; 94640

== ENCOUNTER → 2018-05-14 | Outpatient (CLI) | payer BC ==
--- NOTE | 2018-05-14 08:02 | US ---
EXAMINATION TYPE: US kidneys/renal and bladder DATE OF EXAM: 05/14/2018 COMPARISON: CLINICAL HISTORY: N28.1 Cyst of Kidney. FU renal cyst and stones. No pain. EXAM MEASUREMENTS: Right Kidney: 11.8 x 5.2 x 5.9 cm Left Kidney: 13.0 x 4.9 x 6.0 cm Right Kidney: Lower pole echogenic focus with shadow - 0.7 x 0.7 cm Left Kidney: Two lateral cystic appearing lesions seen, 1- mid pole= 0.8 x 0.9 x 0.8 cm 2- lower verena e = 2.8 x 2.6 x 2.9 cm. Multiple echogenic foci seen, largest lower pole = 0.8 x 1.2 cm Bladder: mildly distended, wnl as visualized Bilateral Jets seen There is no evidence for hydronephrosis at this point in time. No nephrolithiasis is seen. No prachi s are identified. The urinary bladder is anechoic. Bilateral ureteral jets are seen. IMPRESSION: 1. Bilateral nephrolithiasis without evidence for hydronephrosis. 2. Left renal cystic lesions.
== END | disposition home or self-care (01) ==
LOC: RADUSWWP 07:16
PROVIDERS: ATTEND Family Medicine
DX: N28.1 Cyst of kidney, acquired (principal); N20.0 Calculus of kidney
CPT/HCPCS: 76770